=== PATIENT | male | born 1955 | race Caucasian/White ===

== ENCOUNTER 2016-09-22 08:46 | Day surgery (SDC) | payer BC ==
[~2016-09-22 08:46] MED LIST: Buffered Lidocaine 1% SYR 3ML* 3 ML/SYR SYRINGE INTRADERM ONE; Famotidine IV* 10 MG/ML 2 ML (20 mg) IV ONE
[2016-09-22] MEDS ORDERED: Famotidine IV* 10 MG/ML 2 ML (20 mg) ONE (08:53)
[2016-09-22] MEDS ORDERED: ceFAZolin 2 GM PREMIX (*) 2 GM/50 ML BAG IVPB ONE (08:53)
[2016-09-22] MEDS ORDERED: Midazolam* 1 MG/ML 5 ML VIAL (5 MG) ONE (09:16)
[2016-09-22] MEDS ORDERED: fentaNYL* 50 MCG/ML 2 ML VIAL (100 MCG VIAL) ONE (09:16)
[2016-09-22] MEDS ORDERED: Propofol* 10 MG/ML 20 ML BTL IV PUSH ONE (09:54)
[2016-09-22] MEDS ORDERED: Ondansetron INJ* 2 MG/ML VIAL ONE (09:54)
[2016-09-22] MEDS ORDERED: Lidocaine 2% PF * 5 ML VIAL ONE (09:54)
[2016-09-22] MEDS ORDERED: Acetaminophen TAB* 325 MG PO PRN (09:59)
[2016-09-22] MEDS ORDERED: DiMENhydriNATE IV* 50 MG/ML VIAL IV PUSH PRN (09:59)
[2016-09-22] MEDS ORDERED: oxyCODONE/Acetamin 5/325 MG* TAB PO PRN (09:59)
[2016-09-22] MEDS ORDERED: Bupivacaine 0.25% EPI 200,000* 30 ML SDV ONE (10:14)
[2016-09-22 11:21] VITALS: BP 116/69
== END 2016-09-22 11:39 | disposition home or self-care (01) ==
LOC: OREAST 08:46
PROVIDERS: ATTEND Plastic Surgery
DX: L98.8 Other specified disorders of the skin and subcutaneous tissue (principal); Z85.820 Personal history of malignant melanoma of skin; Z87.891 Personal history of nicotine dependence
CPT/HCPCS: 88305; J0690; J2250; J2405; J2704; J3010

== ENCOUNTER 2017-10-22 11:13 | Emergency (ER) | payer BC ==
--- OUTSIDE RECORDS SUMMARY | 2017-10-22 12:01 | XMS REPORT ---
:1955 External Reference #:[id number] Author Organization [facility] Address [address] [place] [address] Phone [phone] Care Team Providers Name Role Phone Rudi Becerra M.D. 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 [address] PayID: [id number] KT Judd [id number] Medigap Part B Effective: Policy Number: [employer] VARUN Cabrera 2013 [id number] Rosalie Group Name: [employer] [place] [address] [address] PayID: [id number] KT Judd [id number] Problems Date Description Provider Status Onset: 01/15/2012 Pure hypercholesterolemia Rudi Becerra M.D. Active Onset: 01/15/2012 Obstructive sleep apnea syndrome uRdi Becerra M.D. Active Onset: 01/15/2012 Overlapping malignant melanoma of skin Rudi Becerra M.D. Active Family History Date Family Member(s) Problem(s) Comments Father CAD had a stent in his 60's. : (age 72 Mother due to Cancer, Years) Lung Mother due to CAD () - had stents in her late 60's. 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 Cigarette Use Former Cigarette Smoker smoked 1/2 ppd x 6months in high school. Pipe Former Pipe Smoker, Smoked An Occasional Pipe ETOH Use Negative For Currently consumes alcohol Smoking Patient is a former smoker Exercise Type/Frequency Exercises rarely walks an hour a week. Allergies, Adverse Reactions, Alerts Date Description Reaction Status Severity Comments 11/28/2008 NKDA active Medications Medication Date Status Form Strength Qnty SIG Indications Ordering Provider Aspirin 09/29 Active Chewtabs 81mg 1 by mouth every day Jayesh Becerra Ranitidine HCL 10/14 Active Tablets 150mg 60tab take one tablet R12 s by mouth twice Becerra, a day if needed M.DFlor Pravastatin 08/17 Active Tablets 40mg 30tab take one tablet E78.0 s by mouth every Becerra, day M.DFlor Multivitamins 05/04 Active Tablets 1 po qd Jayesh Becerra Co Q-10 05/04 Active Capsules 200mg 1 po qd E78.0 Jayesh Becerra Glucosamine/Ch 04/07 Active Capsules Rudi ondroi Jayesh Becerra Zostavax 05/15 Hx Solution [id number] 1unit perishable V70.0 Rec 0.65ML s vaccine. bring Azam Becerra immediately to Jayesh 05/13 office administration unless administered at pharmacy Aspirin 12/05 Hx Tablets 325mg 1 po qd Azam Becerra M.D. 09/29 Protime 08/22 Hx standing order 443.21 for PT/inr Azam Becerra M.D. 08/27 V58.61 Warfarin Sodium 08/21/2012 - Hx Tablets 5mg 30tabs take one Lalitha An 12/04/2012 tablet by Devon, mouth every M.D. day in addition to 4mg dose Warfarin Sodium 08/21/2012 - Hx Tablets 4mg 30tabs take 1 tablet Lalitha An 12/04/2012 by mouth Devon, daily, in M.D. addition to one 5 mg tablet as directed. Warfarin Sodium 08/17/2012 - Hx Tablets 7.5mg Lalitha An 08/21/2012 Jayesh Osorio Omeprazole 08/17/2012 - Hx Capsules DR 20mg 90caps one po qam Lalitha An 11/27/2012 Jayesh Osorio Tamiflu 07/25/2012 - Hx Capsules 75mg 10caps take 1 Rudi Becerra, 08/24/2012 capsule by M.D. mouth 2 times per day for 5 days for flu Tizanidine HCL 06/11/2012 - Hx Capsules 4mg 20caps 1 po tid prn Pari 07/14/2016 back pain Aaron Turcios., R.D. Ginkgo Biloba 05/10/2012 - Hx Capsules 40mg Rudi Becerra, Extract 08/10/2012 Jayesh Candi Root 11/03/2011 - Hx Capsules uRdi Becerra, 05/07/2013 Jayesh Benzonatate 03/04/2011 - Hx Capsules 100mg 30caps 1 or 2 tabs 786 Farrah 05/03/2011 po tid prn .2 Vivi, coughing [employer] Unit 07/07/2009 - Hx 1Box reusable Rudi Becerra, 08/19/2015 electrodes M.D. Out Of Work 04/07/2009 - Hx Needs to be Rudi Becerra, 05/22/2009 out of work M.D. through 04/14/09 Aspirin 11/28/2008 - Hx Chewtabs 81mg 1 po qd 272 Rudi Becerra, 08/17/2012 .0 M.D. Fish Oil 11/28/2008 - Hx Capsules 1 po qd 272 Rudi Becerra, 05/03/2011 .0 M.D. Hearing Screen 11/28/2008 - Hx 389 Rudi Becerra, 12/28/2008 .8 M.D. Garlic 11/28/2008 - Hx Tablets Rudi Becerra, 05/03/2011 M.D. Pravastatin 11/28/2008 - Hx Tablets 40mg 135tabs Take One 272 Rudi Becerra, Sodium 05/10/2012 Tablets By .0 M.D. Mouth Every night Tizanidine HCL - Hx Tablets 2mg 30tabs 1 tid prn Unknown 05/03/2011 muscle spasm Tramadol - Hx Tablets Unknown Hydrochloride/A 05/03/2011 cetaminophen Codeine Sulfate - Hx Tablets 30mg Unknown 05/06/2013 Immunizations CPT Code Status Date Vaccine Lot # [id number] Given 04/26/2017 Influenza Virus Vaccine, Quadrivalent, 3 Yr > Quad, Preserv Free 57289 Given 09/29/2016 Hep B Vaccine Adult, 3 Dose age >20 yrs [id number] 81013 Given 09/29/2016 Zoster Vaccine [id number] 87843 Given 03/24/2016 Influenza Virus Vaccine, Quadrivalent, 3 Yr > Quad, Preserv Free 09818 Given 10/21/2015 Hep B Vaccine Adult, 3 Dose age >20 yrs [id number] 77266 Given 08/20/2015 Hep B Vaccine Adult, 3 Dose age >20 yrs [id number] 29568 Given 05/07/2015 Influenza Virus Vaccine, Quadrivalent, 3 Yr > Quad, Preserv Free 09548 Given 05/16/2014 Pneumovax 23 (PPSV23) 65+ years or high risk 2 to [id number] 65 year old 56063 Given 05/07/2014 Influenza Virus Vaccine, Quadrivalent, 3 Yr > Quad, Preserv Free 09933 Given 05/04/2011 Tdap (Adacel) [id number] 81999 Given 05/04/2011 Influenza Vaccine-Preservative Free 3 Yrs And [id number] Above 23241 Given 05/11/2005 DT (Adult) Vital Signs Date Vital Result Comment 09/27/2017 Weight 211.00 lb Weight in kg's 95.710 BP Systolic 134 mmHg BP Diastolic 78 mmHg Heart Rate 74 /min Body Temperature 97.3 F Respiratory Rate 16 /min Height 71.5 inches 5'11.50" BMI (Body Mass Index) 29.0 kg/m2 O2 % BldC Oximetry 98 % 09/29/2016 Weight 210.00 lb Weight in kg's 95.256 BP Systolic 140 mmHg BP Diastolic 70 mmHg Heart Rate 76 /min Height 70 inches 5'10" BMI (Body Mass Index) 30.1 kg/m2 07/14/2016 Weight 204.00 lb Weight in kg's 92.534 BP Systolic 122 mmHg BP Diastolic 78 mmHg Heart Rate 76 /min Body Temperature 97.1 F Respiratory Rate 16 /min O2 % BldC Oximetry 98 % 10/15/2015 Weight 207.00 lb Weight in kg's 93.895 BP Systolic 122 mmHg BP Diastolic 80 mmHg Heart Rate 60 /min 08/20/2015 Weight 206.00 lb Weight in kg's 93.442 BP Systolic 112 mmHg BP Diastolic 70 mmHg Heart Rate 60 /min Height 71 inches 5'11" BMI (Body Mass Index) 28.7 kg/m2 05/16/2014 Weight 201.00 lb Weight in kg's 91.174 BP Systolic 116 mmHg BP Diastolic 64 mmHg Heart Rate 68 /min Height 72 inches 6'0" BMI (Body Mass Index) 27.3 kg/m2 11/15/2013 Weight 201.00 lb Weight in kg's 91.174 BP Systolic 114 mmHg BP Diastolic 78 mmHg Heart Rate 60 /min 05/30/2013 Weight 204.00 lb Weight in kg's 92.534 BP Systolic 116 mmHg BP Diastolic 86 mmHg Heart Rate 62 /min Body Temperature 96.4 F 05/15/2013 Weight 198.00 lb Weight in kg's 89.813 BP Systolic 128 mmHg BP Diastolic 78 mmHg Heart Rate 78 /min Height 71.5 inches 5'11.50" BMI (Body Mass Index) 27.2 kg/m2 11/27/2012 Weight 199.00 lb Weight in kg's 90.266 BP Systolic 120 mmHg BP Diastolic 78 mmHg Heart Rate 68 /min 09/13/2012 Weight 202.00 lb Weight in kg's 91.627 BP Systolic 130 mmHg BP Diastolic 84 mmHg Heart Rate 76 /min 08/22/2012 Weight 198.00 lb Weight in kg's 89.813 BP Systolic 108 mmHg BP Diastolic 68 mmHg Heart Rate 64 /min 08/17/2012 Weight 197.00 lb Weight in kg's 89.359 BP Systolic 118 mmHg BP Diastolic 82 mmHg Heart Rate 68 /min Body Temperature 97.2 F 07/25/2012 Weight 196.00 lb Weight in kg's 88.906 BP Systolic 116 mmHg BP Diastolic 88 mmHg Heart Rate 108 /min Body Temperature 97.7 F 05/10/2012 Weight 204.00 lb Weight in kg's 92.534 BP Systolic 118 mmHg BP Diastolic 76 mmHg Heart Rate 80 /min Height 71 inches 5'11" BMI (Body Mass Index) 28.4 kg/m2 11/03/2011 Weight 219.00 lb Weight in kg's 99.338 BP Systolic 120 mmHg BP Diastolic 80 mmHg Heart Rate 64 /min 05/04/2011 Weight 218.00 lb Weight in kg's 98.885 BP Systolic 120 mmHg BP Diastolic 80 mmHg Heart Rate 82 /min 03/04/2011 Weight 219.00 lb Weight in kg's 99.338 BP Systolic 112 mmHg BP Diastolic 80 mmHg Heart Rate 85 /min Body Temperature 96.8 F O2 % BldC Oximetry 98 % 01/20/2011 Weight 217.00 lb Weight in kg's 98.431 BP Systolic 130 mmHg BP Diastolic 78 mmHg Heart Rate 80 /min Body Temperature 96.9 F 10/13/2010 Weight 215.00 lb Weight in kg's 97.524 BP Systolic 112 mmHg BP Diastolic 74 mmHg Heart Rate 72 /min 04/15/2010 Weight 211.00 lb Weight in kg's 95.710 BP Systolic 120 mmHg BP Diastolic 80 mmHg Heart Rate 84 /min Height 71 inches 5'11" BMI (Body Mass Index) 29.4 kg/m2 12/16/2009 Weight 212.00 lb Weight in kg's 96.163 BP Systolic 134 mmHg BP Diastolic 78 mmHg Heart Rate 80 /min 10/06/2009 Weight 214.00 lb Weight in kg's 97.070 BP Systolic 138 mmHg BP Diastolic 90 mmHg Heart Rate 72 /min 07/07/2009 Weight 218.00 lb Weight in kg's 98.885 BP Systolic 144 mmHg BP Diastolic 80 mmHg Heart Rate 76 /min 04/07/2009 Weight 215.00 lb Weight in kg's 97.524 BP Systolic 136 mmHg BP Diastolic 80 mmHg Heart Rate 72 /min 11/28/2008 Weight 210.00 lb Weight in kg's 95.256 BP Systolic 130 mmHg BP Diastolic 78 mmHg Heart Rate 72 /min Height 71 inches 5'11" BMI (Body Mass Index) 29.3 kg/m2 Results Test Date Test Result H/L Range Note Laboratory test finding 09/14/2017 Monospot Negative Negative 1, 2 Pathologist Review (SEE NOTE) 1, 3 CBC Auto Diff 09/14/2017 White Blood Count 7.9 10^3/uL 3.5-10.8 1 Red Blood Count 4.99 10^6/uL 4.0-5.4 1 Hemoglobin 16.0 g/dL 14.0-18.0 1 Hematocrit 47 % 42-52 1 Mean Corpuscular Volume 94 fL 80-94 1 Mean Corpuscular Hemoglobin 32 pg High 27-31 1 Mean Corpuscular HGB Conc 34 g/dL 31-36 1 Red Cell Distribution Width 13 % 10.5-15 1 Platelet Count 250 10^3/uL 150-450 1 Mean Platelet Volume 8 um3 7.4-10.4 1 Comp Metabolic Panel 09/14/2017 Sodium 137 mmol/L 133-145 1 Potassium 4.3 mmol/L 3.5-5.0 1 Chloride 101 mmol/L 101-111 1 Co2 Carbon Dioxide 30 mmol/L 22-32 1 Anion Gap 6 mmol/L 2-11 1 Glucose 96 mg/dL 70-100 1 Blood Urea Nitrogen 14 mg/dL 6-24 1 Creatinine 0.84 mg/dL 0.67-1.17 1 BUN/Creatinine Ratio 16.7 8-20 1 Calcium 9.8 mg/dL 8.6-10.3 1 Total Protein 7.3 g/dL 6.4-8.9 1 Albumin 4.8 g/dL 3.2-5.2 1 Globulin 2.5 g/dL 2-4 1 Albumin/Globulin Ratio 1.9 1-3 1 Total Bilirubin 1.10 mg/dL High 0.2-1.0 1 Alkaline Phosphatase 49 U/L 34-104 1 Alt 35 U/L 7-52 1 Ast 29 U/L 13-39 1 Egfr Non- 92.9 >60 1 Egfr 119.5 >60 1, 4 Lipid Profile (Trig/Chol/HDL) 09/14/2017 Triglycerides 125 mg/dL 1, 5 Cholesterol 234 mg/dL 1, 6 HDL Cholesterol 52.1 mg/dL 1, 7 LDL Cholesterol 157 mg/dL 1, 8 Manual Differential 09/14/2017 Neutrophil % 34 % Low 38-83 1 Lymphocytes % 40 % 25-47 1 Monocytes % 6 % 0-7 1 Eosinophils % 0 % 0-6 1 Basophil % 0 % 0-2 1 Reactive Lymph % 20 % High 0-6 1, 9 Abs Neutrophils 2.7 10^3/uL 1.5-7.7 1 Abs Lymphocytes 3.2 10^3/uL 1.0-4.8 1 Abs Monocytes 0.5 10^3/uL 0-0.8 1 Abs Eosinophils 0 10^3/uL 0-0.6 1 Abs Basophils 0 10^3/uL 0-0.2 1 RBC Morphology Normal Normal 1 Laboratory test finding 09/14/2017 PSA Screening 1.187 ng/mL 0-4.000 1, 10 CBC Auto Diff 10/03/2016 White Blood Count 5.9 10^3/uL 3.5-10.8 Red Blood Count 4.98 10^6/uL 4.0-5.4 Hemoglobin 15.8 g/dL 14.0-18.0 Hematocrit 46 % 42-52 Mean Corpuscular Volume 93 fL 80-94 Mean Corpuscular Hemoglobin 32 pg High 27-31 Mean Corpuscular HGB Conc 34 g/dL 31-36 Red Cell Distribution Width 13 % 10.5-15 Platelet Count 226 10^3/uL 150-450 Mean Platelet Volume 8 um3 7.4-10.4 Abs Neutrophils 2.4 10^3/uL 1.5-7.7 Abs Lymphocytes 2.7 10^3/uL 1.0-4.8 Abs Monocytes 0.7 10^3/uL 0-0.8 Abs Eosinophils 0.1 10^3/uL 0-0.6 Abs Basophils 0 10^3/uL 0-0.2 Abs Nucleated RBC 0.01 10^3/uL Granulocyte % 40.1 % 38-83 Lymphocyte % 46.4 % 25-47 Monocyte % 11.5 % High 1-9 Eosinophil % 1.5 % 0-6 Basophil % 0.5 % 0-2 Nucleated Red Blood Cells % 0.2 Comp Metabolic Panel 10/03/2016 Sodium 136 mmol/L 133-145 Potassium 4.4 mmol/L 3.5-5.0 Chloride 101 mmol/L 101-111 Co2 Carbon Dioxide 30 mmol/L 22-32 Anion Gap 5 mmol/L 2-11 Glucose 92 mg/dL 70-100 Blood Urea Nitrogen 14 mg/dL 6-24 Creatinine 0.77 mg/dL 0.67-1.17 BUN/Creatinine Ratio 18.2 8-20 Calcium 9.5 mg/dL 8.6-10.3 Total Protein 7.1 g/dL 6.4-8.9 Albumin 4.5 g/dL 3.2-5.2 Globulin 2.6 g/dL 2-4 Albumin/Globulin Ratio 1.7 1-3 Total Bilirubin 0.90 mg/dL 0.2-1.0 Alkaline Phosphatase 52 U/L 34-104 Alt 35 U/L 7-52 Ast 27 U/L 13-39 Egfr Non- 103.1 >60 Egfr 132.5 >60 11 Lipid Profile (Trig/Chol/HDL) 10/03/2016 Triglycerides 180 mg/dL 12 Cholesterol 251 mg/dL 13 HDL Cholesterol 50.4 mg/dL 14 LDL Cholesterol 165 mg/dL 15 Laboratory test finding 10/03/2016 PSA Screening 0.989 ng/mL 0-4.000 16 Urine DIP 09/29/2016 Leukocytes NEG Neg Urine Nitrites NEG Neg Urobilinogen NORM Norm Total Protein, Urine NEG Neg Urine pH 6 5-6 Urine Blood TRACE Neg Specific Bartlett 1.020 1.01-1.02 Urine Ketones NEG Neg Urine Bilirubin NEG Neg Urine Glucose NORM Norm Laboratory test 09/22/2016 Surgical Pathology SEE RESULT BELOW 17, 18 finding Laboratory test 08/24/2016 Surgical Pathology SEE RESULT BELOW 19, 20 finding Laboratory test 08/01/2016 Clotest SEE RESULT BELOW 21, 22 finding Laboratory test 07/01/2016 Inr 0.96 0.89-1.11 finding CBC Auto Diff 07/01/2016 White Blood Count 6.5 10^3/uL 3.5-10.8 Red Blood Count 5.02 10^6/uL 4.0-5.4 Hemoglobin 16.0 g/dL 14.0-18.0 Hematocrit 47 % 42-52 Mean Corpuscular Volume 93 fL 80-94 Mean Corpuscular Hemoglobin 32 pg High 27-31 Mean Corpuscular HGB Conc 34 g/dL 31-36 Red Cell Distribution Width 13 % 10.5-15 Platelet Count 265 10^3/uL 150-450 Mean Platelet Volume 8 um3 7.4-10.4 Abs Neutrophils 3.4 10^3/uL 1.5-7.7 Abs Lymphocytes 2.4 10^3/uL 1.0-4.8 Abs Monocytes 0.7 10^3/uL 0-0.8 Abs Eosinophils 0.1 10^3/uL 0-0.6 Abs Basophils 0 10^3/uL 0-0.2 Abs Nucleated RBC 0.01 10^3/uL Granulocyte % 51.6 % 38-83 Lymphocyte % 36.9 % 25-47 Monocyte % 10.2 % High 1-9 Eosinophil % 0.8 % 0-6 Basophil % 0.5 % 0-2 Nucleated Red Blood Cells % 0.2 Laboratory test finding 07/01/2016 C Reactive Protein < 1.00 mg/L &lt ; 5.00 23 Comp Metabolic Panel 07/01/2016 Sodium 138 mmol/L 133-145 Chloride 106 mmol/L 101-111 Co2 Carbon Dioxide 28 mmol/L 22-32 Glucose 101 mg/dL High 70-100 Blood Urea Nitrogen 18 mg/dL 6-24 Creatinine 0.77 mg/dL 0.67-1.17 BUN/Creatinine Ratio 23.4 High 8-20 Calcium 9.3 mg/dL 8.6-10.3 Total Protein 7.2 g/dL 6.4-8.9 Albumin 4.4 g/dL 3.2-5.2 Globulin 2.8 g/dL 2-4 Albumin/Globulin Ratio 1.6 1-3 Total Bilirubin 0.40 mg/dL 0.2-1.0 Alkaline Phosphatase 55 U/L 34-104 Alt 27 U/L 7-52 Egfr Non- 103.1 >60 Egfr 132.5 >60 24 Potassium 4.4 mmol/L 3.5-5.0 Anion Gap 4 mmol/L 2-11 Ast 27 U/L 13-39 Comp Metabolic Panel 04/10/2016 Sodium 137 mmol/L 133-145 Chloride 104 mmol/L 101-111 Co2 Carbon Dioxide 28 mmol/L 22-32 Glucose 120 mg/dL High 70-100 Blood Urea Nitrogen 19 mg/dL 6-24 Creatinine 0.86 mg/dL 0.67-1.17 BUN/Creatinine Ratio 22.1 High 8-20 Calcium 9.1 mg/dL 8.6-10.3 25 Total Protein 6.6 g/dL 6.4-8.9 Albumin 4.0 g/dL 3.2-5.2 Globulin 2.6 g/dL 2-4 Albumin/Globulin Ratio 1.5 1-3 Total Bilirubin 0.60 mg/dL 0.2-1.0 Alkaline Phosphatase 54 U/L 34-104 Alt 24 U/L 7-52 Egfr Non- 90.7 >60 Egfr 116.7 >60 26 Potassium 4.4 mmol/L 3.5-5.0 Anion Gap 5 mmol/L 2-11 Ast 28 U/L 13-39 Laboratory test finding 04/10/2016 Amylase 49 U/L 29-103 Lipase 28 U/L 11.0-82.0 C Reactive Protein < 1.00 mg/L < 5.00 27 Laboratory test finding 04/10/2016 B-Type Natriuretic 21 pg/mL 28 Peptide BNP CBC Auto Diff 04/10/2016 White Blood Count 7.2 10^3/uL 3.5-10.8 Red Blood Count 4.65 10^6/uL 4.0-5.4 Hemoglobin 15.2 g/dL 14.0-18.0 Hematocrit 44 % 42-52 Mean Corpuscular Volume 94 fL 80-94 Mean Corpuscular Hemoglobin 33 pg High 27-31 Mean Corpuscular HGB Conc 35 g/dL 31-36 Red Cell Distribution Width 13 % 10.5-15 Platelet Count 274 10^3/uL 150-450 Mean Platelet Volume 8 um3 7.4-10.4 Abs Neutrophils 3.7 10^3/uL 1.5-7.7 Abs Lymphocytes 2.7 10^3/uL 1.0-4.8 Abs Monocytes 0.7 10^3/uL 0-0.8 Abs Eosinophils 0 10^3/uL 0-0.6 Abs Basophils 0.1 10^3/uL 0-0.2 Abs Nucleated RBC 0.04 10^3/uL Granulocyte % 51.6 % 38-83 Lymphocyte % 37.3 % 25-47 Monocyte % 9.6 % High 1-9 Eosinophil % 0.6 % 0-6 Basophil % 0.9 % 0-2 Nucleated Red Blood Cells % 0.5 Urinalysis Profile 04/10/2016 Urine Color Yellow Urine Appearance Cloudy Urine Specific Bartlett 1.018 1.010-1.030 Urine pH 6.0 5-9 Urine Urobilinogen Negative Negative Urine Ketones Negative Negative Urine Protein Negative Negative Urine Leukocytes Negative Negative Urine Blood Negative Negative * * Negative 29 Urine Nitrite Negative Negative Urine Bilirubin Negative Negative Urine Glucose Negative Negative Laboratory test finding 09/30/2015 Troponin I 0.00 ng/mL <0.03 30 CBC Auto Diff 09/30/2015 White Blood Count 7.1 10^3/uL 3.5-10.8 Red Blood Count 4.79 10^6/uL 4.0-5.4 Hemoglobin 15.3 g/dL 14.0-18.0 Hematocrit 45 % 42-52 Mean Corpuscular Volume 94 fL 80-94 Mean Corpuscular Hemoglobin 32 pg High 27-31 Mean Corpuscular HGB Conc 34 g/dL 31-36 Red Cell Distribution Width 13 % 10.5-15 Platelet Count 269 10^3/uL 150-450 Mean Platelet Volume 7 um3 Low 7.4-10.4 Abs Neutrophils 3.8 10^3/uL 1.5-7.7 Abs Lymphocytes 2.4 10^3/uL 1.0-4.8 Abs Monocytes 0.8 10^3/uL 0-0.8 Abs Eosinophils 0 10^3/uL 0-0.6 Abs Basophils 0 10^3/uL 0-0.2 Abs Nucleated RBC 0.02 10^3/uL Granulocyte % 54.1 % 38-83 Lymphocyte % 33.9 % 25-47 Monocyte % 11.0 % High 1-9 Eosinophil % 0.3 % 0-6 Basophil % 0.7 % 0-2 Nucleated Red Blood Cells % 0.3 Inr/Protime 09/30/2015 Inr 1.02 0.89-1.11 Laboratory test finding 09/30/2015 Partial Thrombo Time 32.3 seconds 26.0 -36.3 PTT Lactic Acid 0.7 mmol/L 0.5-2.0 31 B-Type Natriuretic Peptide BNP 17 pg/mL 32 Urinalysis Profile 09/30/2015 Urine Color Yellow Urine Appearance Cloudy Urine Specific Bartlett 1.010 1.010-1.030 Urine pH 7.0 5-9 Urine Urobilinogen Negative Negative Urine Ketones Negative Negative Urine Protein Negative Negative Urine Leukocytes Negative Negative Urine Blood Negative Negative * * Negative 33 Urine Nitrite Negative Negative Urine Bilirubin Negative Negative Urine Glucose Negative Negative Comp Metabolic Panel 09/30/2015 Sodium 136 mmol/L 133-145 Potassium 3.8 mmol/L 3.5-5.0 Chloride 102 mmol/L 101-111 Co2 Carbon Dioxide 29 mmol/L 22-32 Anion Gap 5 mmol/L 2-11 Glucose 92 mg/dL 70-100 Blood Urea Nitrogen 16 mg/dL 6-24 Creatinine 0.80 mg/dL 0.67-1.17 BUN/Creatinine Ratio 20.0 8-20 Calcium 9.5 mg/dL 8.6-10.3 Total Protein 7.0 g/dL 6.4-8.9 Albumin 4.4 g/dL 3.2-5.2 Globulin 2.6 g/dL 2-4 Albumin/Globulin Ratio 1.7 1-3 Total Bilirubin 0.60 mg/dL 0.2-1.0 Alkaline Phosphatase 46 U/L 34-104 Alt 34 U/L 7-52 Ast 31 U/L 13-39 Egfr Non- 98.9 >60 Egfr 127.2 >60 34 Laboratory test finding 09/30/2015 Magnesium 2.2 mg/dL 1.9-2.7 Lipase 20 U/L 11.0-82.0 Creatine Kinase 205 U/L 10-223 C Reactive Protein < 1.00 mg/L < 5.00 35 Troponin I 0.00 ng/mL <0.03 36 CKMB 09/30/2015 CKMB ng/mL 4.0 ng/mL 0.6-6.3 Laboratory test finding 09/30/2015 TSH (Thyroid Stimulating 1.52 ?IU/mL 0.34-5.60 Horm) Urine DIP 08/20/2015 Leukocytes NEG Neg Urine Nitrites NEG Neg Urobilinogen NORM Norm Total Protein, Urine TRACE Neg Urine pH 6.5 High 5-6 Urine Blood TRACE Neg Specific Bartlett 1.010 1.01-1.02 Urine Ketones NEG Neg Urine Bilirubin NEG Neg Urine Glucose NORM Norm Statin 08/18/2015 Ast (Sgot) 27 U/L 13-39 Alt (SGPT) 28 U/L 7-52 Laboratory test finding 08/18/2015 Alt (SGPT) 28 U/L 7-52 Ast (Sgot) 27 U/L 13-39 Creatine Kinase 214 U/L 10-223 PSA Screening 1.225 ng/mL 0-4.0 37 Lipid Profile (Trig/Chol/HDL) 08/18/2015 Triglycerides 126 mg/dL 38 Cholesterol 192 mg/dL 39 HDL Cholesterol 54.0 mg/dL 40 LDL Cholesterol 113 mg/dL 41 Laboratory test finding 08/18/2015 Creatine Kinase 214 U/L 10-223 Lipid Profile (Trig/Chol/HDL) 08/18/2015 Triglycerides 126 mg/dL 42 Cholesterol 192 mg/dL 43 HDL Cholesterol 54.0 mg/dL 44 LDL Cholesterol 113 mg/dL 45 Laboratory test 01/30/2015 Surgical Pathology SEE RESULT BELOW 46 finding Urine DIP 05/16/2014 Specific Bartlett 1.005 Low 1.01-1.02 Urine pH 8 High 5-6 Leukocytes neg Neg Urine Nitrites neg Neg Total Protein, Urine neg Neg Urine Glucose norm Norm Urine Ketones neg Neg Urobilinogen norm Norm Urine Bilirubin neg Neg Urine Blood neg Neg Laboratory test finding 05/15/2014 PSA Diagnostic 0.908 ng/mL 0-4.0 47 CBC Auto Diff 05/15/2014 White Blood Count 4.6 10^3/uL Low 4.8-10.8 Red Blood Count 4.86 10^6/uL 4.0-5.4 Hemoglobin 15.7 g/dL 14.0-18.0 Hematocrit 46 % 42-52 Mean Corpuscular Volume 95 fL High 80-94 Mean Corpuscular Hemoglobin 32 pg High 27-31 Mean Corpuscular HGB Conc 34 g/dL 31-36 Red Cell Distribution Width 13 % 10.5-15 Platelet Count 261 10^3/uL 150-450 Mean Platelet Volume 7 um3 Low 7.4-10.4 Abs Neutrophils 2.3 10^3/uL 1.5-7.7 Abs Lymphocytes 1.7 10^3/uL 1.0-4.8 Abs Monocytes 0.5 10^3/uL 0-0.8 Abs Eosinophils 0 10^3/uL 0-0.6 Abs Basophils 0 10^3/uL 0-0.2 Abs Nucleated RBC 0.01 10^3/uL Granulocyte % 49.5 % 38-83 Lymphocyte % 37.9 % 25-47 Monocyte % 11.4 % High 1-9 Eosinophil % 0.7 % 0-6 Basophil % 0.5 % 0-2 Nucleated Red Blood Cells % 0.1 Laboratory test finding 05/15/2014 Creatine Kinase 166 U/L 10223 Lipid Profile (Trig/Chol/HDL) 05/15/2014 Triglycerides 73 mg/dL 48 Cholesterol 178 mg/dL 49 HDL Cholesterol 54.2 mg/dL 50 LDL Cholesterol 109 mg/dL 51 Comp Metabolic Panel 05/15/2014 Sodium 136 mmol/L 133-145 Potassium 4.0 mmol/L 3.7-5.6 Chloride 100 mmol/L Low 101-111 Co2 Carbon Dioxide 32 mmol/L 22-32 Anion Gap 4 mmol/L 2-11 Glucose 96 mg/dL 70-100 Blood Urea Nitrogen 11 mg/dL 6-24 Creatinine 0.83 mg/dL 0.67-1.17 BUN/Creatinine Ratio 13.3 8-20 Calcium 9.7 mg/dL 8.6-10.3 Total Protein 7.3 g/dL 6.4-8.9 Albumin 4.6 g/dL 3.2-5.2 Globulin 2.7 g/dL 2-4 Albumin/Globulin Ratio 1.7 1-3 Total Bilirubin 0.90 mg/dL 0.2-1.0 Alkaline Phosphatase 49 U/L 34-104 Alt 23 U/L 7-52 Ast 24 U/L 13-39 Egfr Non- 95.2 >60 Egfr 122.4 >60 52 Statin 11/12/2013 Ast 26 U/L 13-39 53 Alt 26 U/L 7-52 54 Lipid Profile (Trig/Chol/HDL) 11/12/2013 Triglycerides 114 mg/dL 55 Cholesterol 181 mg/dL 56 HDL Cholesterol 52.1 mg/dL 57 LDL Cholesterol 106 mg/dL 58 Basic Metabolic Panel 11/12/2013 Sodium 135 mmol/L 133-145 Potassium 4.2 mmol/L 3.7-5.6 Chloride 101 mmol/L 101-111 Co2 Carbon Dioxide 32 mmol/L 22-32 Anion Gap 2 mmol/L 2-11 Glucose 99 mg/dL 70-100 Blood Urea Nitrogen 11 mg/dL 6-24 Creatinine 0.77 mg/dL 0.67-1.17 BUN/Creatinine Ratio 14.3 8-20 Calcium 9.5 mg/dL 8.6-10.3 Egfr Non- 104.1 >60 Egfr 133.9 >60 59 Laboratory test finding 11/12/2013 Creatine Kinase 161 U/L 10-223 60 Laboratory test finding 11/12/2013 PSA Screening 0.870 ng/mL 0-4.0 61 CBC Auto Diff 05/13/2013 White Blood Count 5.2 10^3/uL 4.8-10.8 Red Blood Count 4.69 10^6/uL 4.0-5.4 Hemoglobin 14.9 g/dL 14.0-18.0 Hematocrit 46 % 42-52 Mean Corpuscular Volume 98 fL High 80-94 Mean Corpuscular Hemoglobin 32 pg High 27-31 Mean Corpuscular HGB Conc 33 g/dL 31-36 Red Cell Distribution Width 13 % 10.5-15 Platelet Count 252 10^3/uL 150-450 Mean Platelet Volume 8 um3 7.4-10.4 Comp Metabolic Panel 05/13/2013 Sodium 137 mmol/L 133-145 Potassium 4.4 mmol/L 3.5-5.0 Chloride 103 mmol/L 101-111 Co2 Carbon Dioxide 31.0 mmol/L 22-32 Anion Gap 3.0 mmol/L 2-11 Glucose 105 mg/dL High 70-100 Blood Urea Nitrogen 8 mg/dL 6-24 Creatinine 0.70 mg/dL 0.50-1.40 BUN/Creatinine Ratio 11.4 8-20 Calcium 9.4 mg/dL 8.1-9.9 Total Protein 6.5 g/dL 6.2-8.1 Albumin 4.2 g/dL 3.6-5.4 Globulin 2.3 g/dL 2-4 Albumin/Globulin Ratio 1.8 1-3 Total Bilirubin 1.1 mg/dL 0.4-1.5 Alkaline Phosphatase 51 U/L 30-110 Alt 31 U/L 14-54 Ast 32 U/L 12-42 Egfr Non- 116.2 >60 Egfr 149.5 >60 62 Lipid Profile (Trig/Chol/HDL) 05/13/2013 Triglycerides 121 mg/dL 40-200 Cholesterol 189 mg/dL Less than 200 HDL Cholesterol 51 mg/dL 40-60 63 Cholesterol/HDL Ratio 3.7 Average 1-4.44 LDL Cholesterol 113.8 High Less Than 100 64 Laboratory test finding 05/13/2013 PSA Screening 1.001 ng/mL 0-4.000 65 Creatine Kinase 246 U/L High 0-200 CBC Auto Diff 05/13/2013 White Blood Count 5.2 10^3/uL 4.8-10.8 Red Blood Count 4.69 10^6/uL 4.0-5.4 Hemoglobin 14.9 g/dL 14.0-18.0 Hematocrit 46 % 42-52 Mean Corpuscular Volume 98 fL High 80-94 Mean Corpuscular Hemoglobin 32 pg High 27-31 Mean Corpuscular HGB Conc 33 g/dL 31-36 Red Cell Distribution Width 13 % 10.5-15 Platelet Count 252 10^3/uL 150-450 Mean Platelet Volume 8 um3 7.4-10.4 Abs Neutrophils 3.2 10^3/uL 1.5-7.7 Abs Lymphocytes 1.5 10^3/uL 1.0-4.8 Abs Monocytes 0.6 10^3/uL 0-0.8 Abs Eosinophils 0 10^3/uL 0-0.6 Abs Basophils 0 10^3/uL 0-0.2 Abs Nucleated RBC 0 10^3/uL Granulocyte % 60.8 % 38-83 Lymphocyte % 27.7 % 25-47 Monocyte % 10.6 % High 1-9 Eosinophil % 0.3 % 0-6 Basophil % 0.6 % 0-2 Nucleated Red Blood Cells % 0.1 Inr/Protime 11/30/2012 Inr 1.31 High 0.87-0.97 Statin 11/26/2012 Ast 38 U/L 12-42 66 Alt 42 U/L 14-54 67 Lipid Profile (Trig/Chol/HDL) 11/26/2012 Triglycerides 139 mg/dL 40-200 Cholesterol 210 mg/dL High Less than 200 HDL Cholesterol 46 mg/dL 40-60 68 Cholesterol/HDL Ratio 4.6 Average High 1-4.44 LDL Cholesterol 136.2 mg/dL High Less Than 100 69 Basic Metabolic Panel 11/26/2012 Sodium 137 mmol/L 133-145 Potassium 4.8 mmol/L 3.5-5.0 Chloride 102 mmol/L 101-111 Co2 Carbon Dioxide 31.0 mmol/L 22-32 Anion Gap 4.0 mmol/L 2-11 Glucose 104 mg/dL High 70-100 Blood Urea Nitrogen 14 mg/dL 6-24 Creatinine 0.70 mg/dL 0.50-1.40 BUN/Creatinine Ratio 20.0 8-20 Calcium 9.5 mg/dL 8.1-9.9 Egfr Non- 116.7 >60 Egfr 150.0 >60 70 Laboratory test finding 11/26/2012 Creatine Kinase 248 U/L High 0-200 71 Inr/Protime 11/26/2012 Inr 5.80 High 0.87-0.97 Laboratory test finding 11/08/2012 Inr 1.33 High 0.87-0.97 Hepatitis B Yfn AB 11/08/2012 Hepatitis B Surface Reactive Nonreactive Titer AB Hep B Surf AB Index > 100.00 72 Laboratory test finding 10/30/2012 Inr 1.40 High 0.87-0.97 Laboratory test finding 10/16/2012 Inr 1.89 High 0.87-0.97 73 Inr/Protime 10/04/2012 Inr 1.61 High 0.87-0.97 74 Inr/Protime 09/14/2012 Inr 2.31 High 0.87-0.97 75 Inr/Protime 09/07/2012 Inr 3.59 High 0.87-0.97 76 Inr/Protime 08/31/2012 Inr 2.78 High 0.87-0.97 77 Laboratory test finding 08/27/2012 Inr 2.66 High 0.87-0.97 78 Inr/Protime 08/24/2012 Inr 1.62 High 0.87-0.97 79 Inr/Protime 08/20/2012 Inr 1.85 High 0.82-1.17 80 Laboratory test finding 08/17/2012 Inr 1.73 High 0.82-1.17 81 Comp Metabolic Panel 08/10/2012 Sodium 133 mmol/L 133-145 Potassium 4.3 mmol/L 3.5-5.0 Chloride 99 mmol/L Low 101-111 Co2 Carbon Dioxide 30.0 mmol/L 22-32 Anion Gap 4.0 mmol/L 2-11 Glucose 103 mg/dL High 70-100 Blood Urea Nitrogen 10 mg/dL 6-24 Creatinine 0.90 mg/dL 0.50-1.40 BUN/Creatinine Ratio 11.1 8-20 Calcium 9.4 mg/dL 8.1-9.9 Total Protein 6.7 g/dL 6.2-8.1 Albumin 4.4 g/dL 3.6-5.4 Globulin 2.3 g/dL 2-4 Albumin/Globulin Ratio 1.9 1-3 Total Bilirubin 1.0 mg/dL 0.4-1.5 Alkaline Phosphatase 58 U/L 30-110 Alt 25 U/L 14-54 Ast 22 U/L 12-42 Egfr Non- 87.3 >60 Egfr 112.3 >60 82 Laboratory test finding 08/10/2012 Magnesium 2.0 mg/dL 1.7-2.6 Troponin I 0 ng/mL 0-0.06 83 TSH (Thyroid Stimulating Horm) 2.24 miu/mL 0.34-5.60 Laboratory test finding 08/10/2012 Inr 0.92 0.82-1.17 84 Activated Partial Thrombo Time 31.6 sec 22.18-37.18 CBC Auto Diff 08/10/2012 White Blood Count 5.5 10^3/uL 4.8-10.8 Red Blood Count 4.76 10^6/uL 4.0-5.4 Hemoglobin 15.7 g/dL 14.0-18.0 Hematocrit 46 % 42-52 Mean Corpuscular Volume 96 fL High 80-94 Mean Corpuscular Hemoglobin 33 pg High 27-31 Mean Corpuscular HGB Conc 34 g/dL 31-36 Red Cell Distribution Width 13 % 10.5-15 Platelet Count 324 10^3/uL 150-450 Mean Platelet Volume 8 um3 7.4-10.4 Abs Neutrophils 2.2 10^3/uL 1.5-7.7 Abs Lymphocytes 2.5 10^3/uL 1.0-4.8 Abs Monocytes 0.8 10^3/uL 0-0.8 Abs Eosinophils 0.1 10^3/uL 0-0.6 Abs Basophils 0 10^3/uL 0-0.2 Abs Nucleated RBC 0 10^3/uL Manual Differential 08/10/2012 Neutrophil % 30 % Low 38-83 Band % 5 % 0-8 Lymphocytes % 48 % High 25-47 Monocytes % 6 % 0-13 Eosinophils % 2 % 0-6 Reactive Lymph % 9 % High 0-6 RBC Morphology Normal Normal Laboratory test finding 08/10/2012 Pathologist Review (SEE NOTE) 85 Flu Test A, B, Or A & B,Binaxn 07/25/2012 Influenza A Antigen POS Influenza B Antigen NEG Laboratory test finding 05/04/2012 Creatine Kinase 165 U/L 0-200 CBC Auto Diff 05/04/2012 White Blood Count 4.1 10^3/uL Low 4.8-10.8 Red Blood Count 4.60 10^6/uL 4.0-5.4 Hemoglobin 15.3 g/dL 14.0-18.0 Hematocrit 45 % 42-52 Mean Corpuscular Volume 98 fL High 80-94 Mean Corpuscular Hemoglobin 33 pg High 27-31 Mean Corpuscular HGB Conc 34 g/dL 31-36 Red Cell Distribution Width 13 % 10.5-15 Platelet Count 236 10^3/uL 150-450 Mean Platelet Volume 8 um3 7.4-10.4 Abs Neutrophils 2.1 10^3/uL 1.5-7.7 Abs Lymphocytes 1.4 10^3/uL 1.0-4.8 Abs Monocytes 0.6 10^3/uL 0-0.8 Abs Eosinophils 0 10^3/uL 0-0.6 Abs Basophils 0 10^3/uL 0-0.2 Abs Nucleated RBC 0 10^3/uL Granulocyte % 50.1 % 38-83 Lymphocyte % 34.3 % 25-47 Monocyte % 14.3 % High 1-9 Eosinophil % 0.7 % 0-6 Basophil % 0.6 % 0-2 Nucleated Red Blood Cells % 0.1 Laboratory test finding 05/04/2012 PSA Screening 0.8 NG/ML 0-4.0 86 Lipid Profile (Trig/Chol/HDL) 05/04/2012 Triglycerides 117 mg/dL 40-200 Cholesterol 192 mg/dL Less than 200 87 HDL Cholesterol 52 mg/dL 40-60 88 Cholesterol/HDL Ratio 3.7 AVERAGE 1-4.44 LDL Cholesterol 116.6 mg/dL High Less Than 100 Comp Metabolic Panel 05/04/2012 Sodium 136 mmol/L 133-145 Potassium 4.6 mmol/L 3.5-5.0 Chloride 100 mmol/L Low 101-111 Co2 Carbon Dioxide 32.0 mmol/L 22-32 Anion Gap 4.0 mmol/L 2-11 Glucose 101 mg/dL High 70-100 Blood Urea Nitrogen 9 mg/dL 6-24 Creatinine 0.80 mg/dL 0.50-1.40 BUN/Creatinine Ratio 11.3 8-20 Calcium 9.4 mg/dL 8.1-9.9 Total Protein 6.6 GM/DL 6.2-8.1 Albumin 4.3 GM/DL 3.6-5.4 Globulin 2.3 GM/DL 2-4 Albumin/Globulin Ratio 1.9 1-3 Total Bilirubin 1.2 mg/dL High 0.1-1.0 89 Alkaline Phosphatase 54 U/L 30-110 Alt 30 U/L 14-54 Ast 27 U/L 12-42 Egfr Non- 100.0 >60 Egfr 128.6 >60 90 Lipid Profile (Trig/Chol/HDL) 11/01/2011 Triglyceride 82 mg/dL 40-200 91 Cholesterol 194 mg/dL Less Than 200 91, 92 High Density Lipoprotein 45 mg/dL 40-60 91, 93 Cholesterol/HDL Ratio 4.31 AVERAGE 1-4.97 91 Low Density Lipoprotein 133 mg/dL High Less Than 100 91, 94 Laboratory test finding 11/01/2011 CPK (Creatine Kinase) 290 U/L High 0- 200 91 Statin 11/01/2011 Ast (Sgot) 35 U/L 12-42 91 Alt (SGPT) 39 U/L 17-63 91 Urine DIP 05/04/2011 Leukocytes NEG Neg Urine Nitrites NEG Neg Urine pH 8 High 5-6 Total Protein, Urine NEG Neg Urine Glucose NORM Norm Urine Ketones NEG Neg Urobilinogen NORM Norm Urine Bilirubin NEG Neg Urine Blood NEG Neg Specific Bartlett N/A Low 1.01-1.02 CBC Auto Diff 04/27/2011 White Blood Count 4.2 CUMM Low 4.8-10.8 Red Cell Count 4.54 CUMM Low 4.6-6.2 Hemoglobin 14.8 g/dL 14.0-18.0 Hematocrit 43 % 42-52 Mean Corpuscular Volume 95 um3 High 80-94 Mean Corpuscular Hemoglob 33 pg High 27-31 Mean Corpuscular HGB Cone 34 g/dL 32-36 Redcell Distribution WDTH 13 % 10.5-15 Platelet Count 272 CUMM 150-450 Mean Platelet Volume 7.7 um3 7.4-10.4 Gran % 43.3 % 38-83 Lymph % 40.6 % 25-47 Mononuclear % 13.7 % High 1-9 Eosinophil % 2.0 % 0-6 Basophil % 0.4 % 0-2 Abs Lymphs 1.7 1.0-4.8 Abs Mononuclear 0.6 0-0.8 Absolute Neutrophil Count 1.8 1.5-7.7 Abs Eosinophils 0.1 0-0.6 Abs Basophils 0 0-0.2 Comp Metabolic Panel 04/27/2011 Sodium 137 mmol/L 135-145 Potassium 4.7 mmol/L 3.5-5.0 Chloride 99 mmol/L Low 101-111 Co2 (Carbon Dioxide) 30.0 mmol/L 22-32 Anion Gap 8.0 mmol/L 2-11 95 Glucose 89 mg/dL 70-100 BUN 15 mg/dL 6-24 Creatinine 0.9 mg/dL 0.50-1.40 One Over Creatinine 1.11 BUN/Creatinine Ratio 16.7 8-20 Calcium 9.3 mg/dL 8.1-9.9 Total Protein 7.2 GM/DL 6.2-8.1 Albumin 4.3 GM/DL 3.6-5.4 Globulin 2.9 GM/DL 2-4 Albumin/Globulin Ratio 1.5 1-3 Bilirubin Total 1.2 mg/dL 0.4-1.5 96 Alkaline Phosphatase 62 U/L 39-117 Alt (SGPT) 46 U/L 17-63 Ast (Sgot) 48 U/L High 12-42 eGFR Non- 87.6 > 60 eGFR 112.7 > 60 97 Lipid Profile (Trig/Chol/HDL) 04/27/2011 Triglyceride 102 mg/dL 40-200 Cholesterol 187 mg/dL Less Than 200 98 High Density Lipoprotein 40 mg/dL 40-60 99 Cholesterol/HDL Ratio 4.68 AVERAGE 1-4.97 Low Density Lipoprotein 127 mg/dL High Less Than 100 100 Laboratory test finding 04/27/2011 CPK (Creatine Kinase) 673 U/L High 0- 200 PSA Screening 0.64 NG/ML 0-4 Statin 01/12/2011 Ast (Sgot) 37 U/L 12-42 Alt (SGPT) 40 U/L 17-63 Lipid Profile (Trig/Chol/HDL) 01/12/2011 Triglyceride 119 mg/dL 40-200 Cholesterol 225 mg/dL High Less Than 200 101 High Density Lipoprotein 50 mg/dL 40-60 102 Cholesterol/HDL Ratio 4.50 AVERAGE 1-4.97 Low Density Lipoprotein 151 mg/dL High Less Than 100 103 Laboratory test finding 01/12/2011 CPK (Creatine Kinase) 313 U/L High 0- 200 Laboratory test finding 11/11/2010 Iron Total 52 g/dL 45-182 Ferritin 119 NG/ML 24-336 Vitamin B12 408 pg/mL 180-914 Folic Acid > 20.0 NG/ML High 2-16 TSH 1.85 MIU/ML 0.34-5.60 Testosterone Total 278.6 ng/dL 175-781 Statin 10/06/2010 Ast (Sgot) 36 Alt (SGPT) 50 Lipid Profile (Trig/Chol/HDL) 10/06/2010 Triglyceride 267 High Cholesterol 260 High 104 High Density Lipoprotein 50 105 Cholesterol/HDL Ratio 5.20 High Low Density Lipoprotein 157 High 106 Laboratory test finding 10/06/2010 CPK (Creatine Kinase) 95 CBC With Electronic Diff 05/23/2010 White Blood Count 5.7 CUMM 4.8-10.8 Red Cell Count 4.26 CUMM Low 4.6-6.2 Hemoglobin 14.1 g/dL 14.0-18.0 Hematocrit 41 % Low 42-52 Mean Corpuscular Volume 97 um3 High 80-94 Mean Corpuscular Hemoglob 33 pg High 27-31 Mean Corpuscular HGB Cone 34 g/dL 32-36 Redcell Distribution WDTH 13 % 10.5-15 Platelet Count 273 CUMM 150-450 Mean Platelet Volume 6.3 um3 Low 7.4-10.4 Gran % 44.4 % 38-83 Lymph % 40.2 % 25-47 Mononuclear % 13.1 % High 1-9 Eosinophil % 1.8 % 0-6 Basophil % 0.5 % 0-2 Abs Lymphs 2.3 1.0-4.8 Abs Mononuclear 0.8 0-0.8 Absolute Neutrophil Count 2.5 1.5-7.7 Abs Eosinophils 0.1 0-0.6 Abs Basophils 0 0-0.2 PT W/Inr 05/23/2010 Inr 1.03 0.82-1.17 107 Protime 12.2 SEC 10.2-14.8 108 Comp Metabolic Panel 05/23/2010 Sodium 138 mmol/L 135-145 Potassium 4.1 mmol/L 3.5-5.0 Chloride 102 mmol/L 101-111 Co2 (Carbon Dioxide) 29.0 mmol/L 22-32 Anion Gap 7.0 mmol/L 2-11 109 Glucose 101 mg/dL High 70-100 110 BUN 12 mg/dL 6-24 Creatinine 0.90 mg/dL 0.50-1.40 One Over Creatinine 1.10 BUN/Creatinine Ratio 13.3 8-20 Calcium 8.8 mg/dL 8.1-9.9 Total Protein 6.4 GM/DL 6.2-8.1 Albumin 4.2 GM/DL 3.6-5.4 Globulin 2.2 GM/DL 2-4 Albumin/Globulin Ratio 1.9 1-3 Bilirubin Total 0.7 mg/dL 0.4-1.5 111 Alkaline Phosphatase 67 U/L 39-117 Alt (SGPT) 42 U/L 17-63 Ast (Sgot) 29 U/L 12-42 eGFR Non- 93.5 > 60 eGFR 113.1 > 60 112 Laboratory test finding 05/23/2010 Magnesium 2.3 mg/dL 1.7-2.6 CPK (Creatine Kinase) 244 U/L High 0-200 Troponin-I (TnI) 0 NG/ML 113 Urine DIP 04/15/2010 Leukocytes NEG Neg Urine Nitrites NEG Neg Urine pH 7 High 5-6 Total Protein, Urine NEG Neg Urine Glucose NORM Norm Urine Ketones NEG Neg Urobilinogen NORM Norm Urine Bilirubin NEG Neg Urine Blood NEG Neg Specific Bartlett NA Low 1.01-1.02 CBC With Electronic Diff 03/01/2010 White Blood Count 5.3 CUMM 4.8-10.8 Red Cell Count 4.73 CUMM 4.6-6.2 Hemoglobin 15.6 g/dL 14.0-18.0 Hematocrit 46 % 42-52 Mean Corpuscular Volume 96 um3 High 80-94 Mean Corpuscular Hemoglob 33 pg High 27-31 Mean Corpuscular HGB Cone 34 g/dL 32-36 Redcell Distribution WDTH 13 % 10.5-15 Platelet Count 277 CUMM 150-450 Mean Platelet Volume 6.7 um3 Low 7.4-10.4 Gran % 48.7 % 38-83 Lymph % 37.3 % 25-47 Mononuclear % 11.9 % High 1-9 Eosinophil % 1.5 % 0-6 Basophil % 0.6 % 0-2 Abs Lymphs 2.0 1.0-4.8 Abs Mononuclear 0.6 0-0.8 Absolute Neutrophil Count 2.6 1.5-7.7 Abs Eosinophils 0.1 0-0.6 Abs Basophils 0 0-0.2 Comp Metabolic Panel 03/01/2010 Sodium 138 mmol/L 135-145 Potassium 4.3 mmol/L 3.5-5.0 Chloride 104 mmol/L 101-111 Co2 (Carbon Dioxide) 30.0 mmol/L 22-32 Anion Gap 4.0 mmol/L 2-11 114 Glucose 95 mg/dL 70-100 115 BUN 13 mg/dL 6-24 Creatinine 0.80 mg/dL 0.50-1.40 One Over Creatinine 1.20 BUN/Creatinine Ratio 16.3 8-20 Calcium 9.3 mg/dL 8.1-9.9 116 Total Protein 6.8 GM/DL 6.2-8.1 Albumin 4.5 GM/DL 3.6-5.4 Globulin 2.3 GM/DL 2-4 Albumin/Globulin Ratio 2.0 1-3 Bilirubin Total 0.8 mg/dL 0.4-1.5 117 Alkaline Phosphatase 55 U/L 39-117 Alt (SGPT) 39 U/L 17-63 Ast (Sgot) 30 U/L 12-42 eGFR Non- 107.1 > 60 eGFR 129.6 > 60 118 Lipid Profile (Trig/Chol/HDL) 03/01/2010 Triglyceride 164 mg/dL 40-200 Cholesterol 231 mg/dL High Less Than 200 119 High Density Lipoprotein 41 mg/dL 40-60 120 Cholesterol/HDL Ratio 5.63 AVERAGE High 1-4.97 Low Density Lipoprotein 157 mg/dL High Less Than 100 121 Laboratory test finding 03/01/2010 CPK (Creatine Kinase) 162 U/L 0-200 PSA Screening 0.58 NG/ML 0-4 122 Statin 11/02/2009 Ast (Sgot) 32 U/L 12-42 Alt (SGPT) 38 U/L 17-63 Lipid Profile (Trig/Chol/HDL) 11/02/2009 Triglyceride 135 mg/dL 40-200 Cholesterol 191 mg/dL Less Than 200 123 High Density Lipoprotein 36 mg/dL Low 40-60 124 Cholesterol/HDL Ratio 5.31 AVERAGE High 1-4.97 Low Density Lipoprotein 128 mg/dL High Less Than 100 125 Laboratory test finding 11/02/2009 CPK (Creatine Kinase) 190 U/L 0-200 Statin 07/13/2009 Ast (Sgot) 31 U/L 12-42 91 Alt (SGPT) 33 U/L 17-63 91 Laboratory test finding 07/13/2009 CPK (Creatine Kinase) 287 U/L High 0- 200 91 Lipid Profile 07/13/2009 Triglyceride 149 mg/dL 40-200 91 (Trig/Chol/HDL) Cholesterol 208 mg/dL High Less Than 200 91, 126 High Density Lipoprotein 41 mg/dL 40-60 91, 127 Cholesterol/HDL Ratio 5.07 AVERAGE High 1-4.97 91 Low Density Lipoprotein 137 mg/dL High Less Than 100 91, 128 Laboratory test finding 03/26/2009 CPK (Creatine Kinase) 322 U/L High 0- 200 TSH 1.96 MIU/ML 0.34-5.60 Lipid Profile (Trig/Chol/HDL) 03/26/2009 Triglyceride 279 mg/dL High 40- 200 Cholesterol 232 mg/dL High Less Than 200 129 High Density Lipoprotein 36 mg/dL Low 40-60 130 Cholesterol/HDL Ratio 6.44 AVERAGE High 1-4.97 Low Density Lipoprotein 140 mg/dL High Less Than 100 131 Statin 03/26/2009 Ast (Sgot) 55 U/L High 12-42 Alt (SGPT) 114 U/L High 17-63 Urine DIP 11/28/2008 Leukocytes NEG Neg Urine Nitrites NEG Neg Urine pH 7 High 5-6 Total Protein, Urine NEG Neg Urine Glucose NORM Norm Urine Ketones NEG Neg Urobilinogen NORM Norm Urine Bilirubin NEG Neg Urine Blood NEG Neg Specific [place]lett NORM Low 1.01-1.02 Laboratory test finding 11/28/2008 PSA Screening 0.63 NG/ML 0-4 Lipid Profile (Trig/Chol/HDL) 11/28/2008 Triglyceride 116 mg/dL 40-200 Cholesterol 263 mg/dL High Less Than 200 132 High Density Lipoprotein 45 mg/dL 40-60 133 Cholesterol/HDL Ratio 5.84 AVERAGE High 1-4.97 Low Density Lipoprotein 195 mg/dL High Less Than 100 134 Comp Metabolic Panel 11/28/2008 Sodium 137 mmol/L 135-145 Potassium 4.5 mmol/L 3.5-5.0 Chloride 102 mmol/L 101-111 Co2 (Carbon Dioxide) 31.0 mmol/L 22-32 Anion Gap 4.0 mmol/L 2-11 135 Glucose 97 mg/dL 70-100 136 BUN 15 mg/dL 6-24 Creatinine 0.81 mg/dL 0.50-1.40 One Over Creatinine 1.20 BUN/Creatinine Ratio 18.5 8-20 Calcium 9.4 mg/dL 8.1-9.9 137 Total Protein 7.0 GM/DL 6.2-8.1 Albumin 4.7 GM/DL 3.6-5.4 Globulin 2.3 GM/DL 2-4 Albumin/Globulin Ratio 2.0 1-3 Bilirubin Total 1.1 mg/dL 0.4-1.5 Alkaline Phosphatase 55 U/L 39-117 Alt (SGPT) 35 U/L 17-63 Ast (Sgot) 28 U/L 12-42 CBC With Electronic Diff 11/28/2008 White Blood Count 4.7 CUMM Low 4.8- 10.8 Red Cell Count 4.75 CUMM 4.6-6.2 Hemoglobin 15.4 g/dL 14.0-18.0 Hematocrit 45 % 42-52 Mean Corpuscular Volume 94 um3 80-94 Mean Corpuscular Hemoglob 32 pg High 27-31 Mean Corpuscular HGB Cone 34 g/dL 32-36 Redcell Distribution WDTH 13 % 10.5-15 Platelet Count 288 CUMM 150-450 Mean Platelet Volume 7.5 um3 7.4-10.4 Gran % 50.3 % 38-83 Lymph % 37.9 % 25-47 Mononuclear % 11.0 % High 1-9 Eosinophil % 0.4 % 0-6 Basophil % 0.4 % 0-2 Abs Lymphs 1.8 1.0-4.8 Abs Mononuclear 0.5 0-0.8 Absolute Neutrophil Count 2.4 1.5-7.7 Abs Eosinophils 0 0-0.6 Abs Basophils 0 0-0.2 1 Variant LY 2 Variant LY 3 Reactive lymphocytosis noted. No blasts seen. Additional studies as clinically warranted. Reviewed by Dr. Neil 4 Because ethnic data is not always readily available, this report includes an eGFR for both -Americans and non- Americans. The National Kidney Disease Education Program (NKDEP) does not endorse the use of the MDRD equation for patients that are not between the ages of 18 and 70, are , have extremes of body size, muscle mass, or nutritional status, or are non- or non-. According to the National Kidney Foundation, irrespective of diagnosis, the stage of the disease is based on the level of kidney function: Stage Description GFR(mL/min/1.73 m(2)) 1 Kidney damage with normal or decreased GFR 90 2 Kidney damage with mild decrease in GFR 60-89 3 Moderate decrease in GFR 30-59 4 Severe decrease in GFR 15-29 5 Kidney failure <15 (or dialysis) 5 Desirable: <150 Borderline High: 150-199 High: 200-499 Very High: >500 6 Desirable: <200 Borderline High: 200-239 High: >239 7 Low: <40 Desirable: 40-60 High: >60 8 Desirable: <100 Near Optimal: 100-129 Borderline High: 130-159 High: 160-189 Very High: >189 9 Monospot added per pathologist's request. 10 Serum levels of PSA measured using the Prashanth Leon DXI Hybritech immunoassay should not be interpreted as absolute evidence of the presence or absence of disease. The PSA value should be used in conjunction with other pertinent clinical diagnostic procedures. The values obtained with different assay methods or kits cannot be used interchangeably. 11 Because ethnic data is not always readily available, this report includes an eGFR for both -Americans and non- Americans. The National Kidney Disease Education Program (NKDEP) does not endorse the use of the MDRD equation for patients that are not between the ages of 18 and 70, are , have extremes of body size, muscle mass, or nutritional status, or are non- or non-. According to the National Kidney Foundation, irrespective of diagnosis, the stage of the disease is based on the level of kidney function: Stage Description GFR(mL/min/1.73 m(2)) 1 Kidney damage with normal or decreased GFR 90 2 Kidney damage with mild decrease in GFR 60-89 3 Moderate decrease in GFR 30-59 4 Severe decrease in GFR 15-29 5 Kidney failure <15 (or dialysis) 12 Desirable <150 Borderline high 150-199 High 200-499 Very High >500 13 Desirable <200 Borderline high 200-239 High >239 14 Low <40 Desirable: 40-60 High: >60 15 Desirable: <100 mg/dL Near Optimal: 100-129 mg/dL Borderline High: 130-159 mg/dL High: 160-189 mg/dL Very High: >189 mg/dL 16 Serum levels of PSA measured using the Prashanth Leon DXI Hybritech immunoassay should not be interpreted as absolute evidence of the presence or absence of disease. The PSA value should be used in conjunction with other pertinent clinical diagnostic procedures. The values obtained with different assay methods or kits cannot be used interchangeably. 17 [id number] 18 SEE RESULT BELOW Name: STEPHANY CLAROS : [address]: Elio Ruiz MD Acct: [id number] Unit: [id number] AGE: 61 Location: [facility] Re09/22/16 SEX: M Status: [place] [facility] [place]C: [id number] ANTONI: 09/22/16-[address] [facility] [address]: Elio Ruiz MD REQ: [id number] RECD: 09/22/16-1615 STATUS: [facility] R[facility] DR: Rudi Chopra MD _ ORDERED: LEVEL IV COMMENTS: [id number] FINAL DIAGNOSIS Skin, right forearm, wide excision: -- Scar, widely excised. -- No evidence of residual atypical melanocytic proliferation. COMMENT: The previous lesion at this site ([id number]) has been completely and widely excised. CLINICAL HISTORY PRE-OPERATIVE DIAGNOSIS Suture mcleod 12 o'clock proximal apex margin GROSS DESCRIPTION The specimen is received in formalin labeled, Wide Excision Atypical Melanocytic Proliferation Right Forearm, Suture Mcleod 12:00 Proximal [place] Margin, and consists of a 5.8 x 1.4 cm layton hairbearing skin ellipse excised to a depth of 0.7 cm with a central 2.6 by up to 0.4 cm probable alvarez-white scar. There is a suture attached to one long axis, which designates the 12:00 proximal apex margin. The specimen is inked as follows : 9:00 half black, 3:00 half blue and 12:00 tip green, serially sectioned from 12:00 to 6 :00 and entirely submitted in cassettes A through G to include ellipse ends in cassette A. Signed (signature on file) Tanvi Borges MD 01/07 1600 END OF REPORT * ML=Testing performed at Main Lab DEPARTMENT OF PATHOLOGY, [address] [place] [address] Elvis Neil M.D. Director [facility] # [id number] 19 [id number] SEE RESULT BELOW Name: STEPHANY CLAROS : [address]: Elio Ruiz MD Acct: [id number] Unit: [id number] AGE: 61 Location: [facility] Re08/24/16 SEX: M Status: REG REF SPEC: [id number] ANTONI: 08/24/[address] [facility] [address]: Elio Ruiz MD REQ: [id number] RECD: 08/24/16 STATUS: [facility] R[facility] DR: Rudi Chopra MD _ ORDERED: MB-45 (HMB-45), LEVEL IV, [id number], [id number]-ADD COMMENTS: [id number] FINAL DIAGNOSIS Skin, right dorsal forearm, excision: -- Atypical melanocytic proliferation; see comment. COMMENT: This lesion consists of a regressing melanocytic neoplasm that is at least a compound melanocytic nevus with architectural disorder and severe cytologic atypia. A nearly completely regressed superficially invasive (pT1) malignant melanoma cannot be completely excluded. Only a focal intact area of remaining atypical melanocytic neoplasm is present and it extends to a depth of 0.17 mm. Predominantly, the lesion is composed of a lichenoid inflammatory infiltrate with near absence of melanocytes, evidence of regression. 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 The maximum depth of regression is 0.42 mm. Although the epidermis is focally necrotic, there is no evidence of ulceration. Mitotic figures are not seen in the few remaining nests of atypical dermal melanocytes. An orienting diagram showing the lesion's relationship to margins is provided below. Although the lesion is completely excised, a wider excision is recommended given the possibility that this lesion may represent a superficially invasive malignant melanoma. CONTINUED ON NEXT PAGE * ML=Testing performed at Main Lab DEPARTMENT OF PATHOLOGY, [address] [place] [address] Elvis Neil M.D. Director [facility] # [id number] RUN DATE: 08/26/16 [facility] LAB LIVE PAGE 2 Patient: STEPHANY CLAROS [id number] (Continued) PRE-OPERATIVE DIAGNOSIS (Continued) PRE-OPERATIVE DIAGNOSIS New onset irregular skin lesion; suture mcleod 12 o'clock proximal apex margin GROSS DESCRIPTION The specimen is received in formalin labeled, Excision Skin Lesion Right Dorsal Forearm, Suture Mcleod 12:00 Proximal [place] Margin, and consists of a 3.0 x 1.0 cm layton- white hairbearing skin ellipse excised to a depth of 0.4 cm with a central 0.7 x 0.5 cm layton-brown indurated area. There is a suture attached to one long axis designating the 12:00 proximal apex margin. The specimen is inked as follows: 9:00 half black, 3:00 half blue, 12:00 tip green serially sectioned from 12:00 to 6:00 and entirely submitted in cassettes A through C to include tips in cassette A and lesion in cassette C. MICROSCOPIC DESCRIPTION Histologic sections show an excisional specimen of skin excised to include subcutaneous tissue. Toward the center of the specimen the superficial portion of the epidermis is necrotic with partial thickness epidermal sloughing. The papillary dermis in this area demonstrates a dense interstitial lymphoid infiltrate with basilar vacuolar change, numerous monocytoid bodies in the epidermis, and pigment incontinence. The dense inflammatory infiltrate extends to a depth of 0.42 mm. Solar elastosis is prominent in the papillary dermis. Adjacent to the dense inflammatory infiltrate, increased individual melanocytes with moderate to severe cytologic atypia are present at the dermal-epidermal junction with some evidence of pagetoid extension, but not into the granular layer. A few nests of moderately to severely atypical melanocytes are present in the papillary dermis to a depth of 0.17 mm. Deeper levels of sectioning show similar histologic features. Immunohistochemical stains, with appropriately reacting controls, were performed for HMB-45, Melan-A, and SOX 10 and show that this described area has a near confluent proliferation of atypical melanocytes with a few superficial nests in the dermis and decreased melanocytes in the area of dense inflammation. The atypical melanocytic proliferation is present 2.5 mm from the 9:00 and 3:00 lateral specimen margins and is 3.7 mm from the specimen base. Signed (signature on file) Tanvi Borges MD 10/07 1557 END OF REPORT * ML=Testing performed at Main Lab DEPARTMENT OF PATHOLOGY, [address] [place] [address] Elvis Neil M.D. Director [facility] # [id number] 21 [id number] 22 SEE RESULT BELOW Name: STEPHANY CLAROS : [address]: Armando Javier MD Acct: [id number] Unit: [id number] AGE: 61 Location: ENDOC Re08/01/16 SEX: M Status: DEP REF SPEC: [id number] ANTONI: 08/01/16-[address] [facility] [address]: Armando Javier MD REQ: [id number] RECD: 08/01/16 STATUS: DIANA ROTHMAN DR: Rudi Becerra MD _ SOURCE: [facility]: ORDERED: Clotest COMMENTS: [id number] Procedure Result Reported Site Clotest Final 08/02/16- 735 ML Clotest Negative * ML - [facility] ([facility]) . END OF REPORT * ML=Testing performed at Main Lab DEPARTMENT OF PATHOLOGY, [address] [place] [address] Elvis Neil M.D. Director [facility] # [id number] 23 Acute inflammation: >10.00 24 Because ethnic data is not always readily available, this report includes an eGFR for both -Americans and non- Americans. The National Kidney Disease Education Program (NKDEP) does not endorse the use of the MDRD equation for patients that are not between the ages of 18 and 70, are , have extremes of body size, muscle mass, or nutritional status, or are non- or non-. According to the National Kidney Foundation, irrespective of diagnosis, the stage of the disease is based on the level of kidney function: Stage Description GFR(mL/min/1.73 m(2)) 1 Kidney damage with normal or decreased GFR 90 2 Kidney damage with mild decrease in GFR 60-89 3 Moderate decrease in GFR 30-59 4 Severe decrease in GFR 15-29 5 Kidney failure <15 (or dialysis) 25 Specimen Lipemic. Result may not be valid. 26 Because ethnic data is not always readily available, this report includes an eGFR for both -Americans and non- Americans. The National Kidney Disease Education Program (NKDEP) does not endorse the use of the MDRD equation for patients that are not between the ages of 18 and 70, are , have extremes of body size, muscle mass, or nutritional status, or are non- or non-. According to the National Kidney Foundation, irrespective of diagnosis, the stage of the disease is based on the level of kidney function: Stage Description GFR(mL/min/1.73 m(2)) 1 Kidney damage with normal or decreased GFR 90 2 Kidney damage with mild decrease in GFR 60-89 3 Moderate decrease in GFR 30-59 4 Severe decrease in GFR 15-29 5 Kidney failure <15 (or dialysis) 27 Acute inflammation: >10.00 28 >100 to <200 pg/mL: likely compensated congestive heart failure (CHF) 200 to 400 pg/mL: likely moderate CHF >400 pg/mL: likely moderate to severe CHF 29 *Ascorbic acid is present which may interfere with detection of blood. 30 Reference Range and Interpretation: TnI (ng/mL) Interpretation Less Than 0.03 ng/mL Not supportive of diagnosis of [place] 0.03 - 0.50 ng/mL Indeterminate: suggest serial studies if clinically indicated. Greater than 0.5 ng/mL Consistent with diagnosis of IL 31 [facility] Severe Sepsis and Septic Shock Management Bundle Measure requires all lactic acids initially measuring >2.0mmol/L be repeated. 32 >100 to <200 pg/mL: likely compensated congestive heart failure (CHF) 200 to 400 pg/mL: likely moderate CHF >400 pg/mL: likely moderate to severe CHF 33 *Ascorbic acid is present which may interfere with detection of blood. 34 Because ethnic data is not always readily available, this report includes an eGFR for both -Americans and non- Americans. The National Kidney Disease Education Program (NKDEP) does not endorse the use of the MDRD equation for patients that are not between the ages of 18 and 70, are , have extremes of body size, muscle mass, or nutritional status, or are non- or non-. According to the National Kidney Foundation, irrespective of diagnosis, the stage of the disease is based on the level of kidney function: Stage Description GFR(mL/min/1.73 m(2)) 1 Kidney damage with normal or decreased GFR 90 2 Kidney damage with mild decrease in GFR 60-89 3 Moderate decrease in GFR 30-59 4 Severe decrease in GFR 15-29 5 Kidney failure <15 (or dialysis) 35 Acute inflammation: >10.00 36 Reference Range and Interpretation: TnI (ng/mL) Interpretation Less Than 0.03 ng/mL Not supportive of diagnosis of IL 0.03 - 0.50 ng/mL Indeterminate: suggest serial studies if clinically indicated. Greater than 0.5 ng/mL Consistent with diagnosis of IL 37 Serum levels of PSA measured using the Prashanth TNC DXI Hybritech immunoassay should not be interpreted as absolute evidence of the presence or absence of disease. The PSA value should be used in conjunction with other pertinent clinical diagnostic procedures. The values obtained with different assay methods or kits cannot be used interchangeably. 38 Desirable <150 Borderline high 150-199 High 200-499 Very High >500 39 Desirable <200 Borderline high 200-239 High >239 40 Low <40 Desirable: 40-60 High: >60 41 Desirable: <100 mg/dL Near Optimal: 100-129 mg/dL Borderline High: 130-159 mg/dL High: 160-189 mg/dL Very High: >189 mg/dL 42 Desirable <150 Borderline high 150-199 High 200-499 Very High >500 43 Desirable <200 Borderline high 200-239 High >239 44 Low <40 Desirable: 40-60 High: >60 45 Desirable: <100 mg/dL Near Optimal: 100-129 mg/dL Borderline High: 130-159 mg/dL High: 160-189 mg/dL Very High: >189 mg/dL 46 SEE RESULT BELOW Name: STEPHANY CLAROS : [address]: Elio Ruiz MD Acct: [id number] Unit: [id number] AGE: 59 Location: [facility] Re01/30/15 SEX: M Status: REG REF SPEC: [id number] ANTONI: 01/30/15-[address] [facility] [address]: Elio Ruiz MD REQ: [id number] RECD: 01/30/153534 STATUS: [facility] ROTHMAN DR: Rudi Chopra MD _ ORDERED: LEVEL IV FINAL DIAGNOSIS Skin, right jew, excision: -- Sebaceous skin with actinic keratosis. -- No melanocytic neoplasia identified. CLINICAL HISTORY Recent erythematous lesion adjacent to melanoma excision scar GROSS DESCRIPTION The specimen is received in formalin labeled, Incisional Biopsy Skin Lesion Right [place], and consists of a 1.1 x 0.4 cm lay[place] hairbearing unoriented skin ellipse excised to a depth of 0.2 cm. The specimen is inked, trisected and submitted entirely in one cassette. Signed (signature on file) Elvis Neil MD 1221 END OF REPORT * ML=Testing performed at Main Lab DEPARTMENT OF PATHOLOGY, [address] [place] [address] Elvis Neil M.D. Director [facility] # [id number] 47 Serum levels of PSA measured using the Prashanth TNC DXI Hybritech immunoassay should not be interpreted as absolute evidence of the presence or absence of disease. The PSA value should be used in conjunction with other pertinent clinical diagnostic procedures. The values obtained with different assay methods or kits cannot be used interchangeably. 48 Desirable <150 Borderline high 150-199 High 200-499 Very High >500 49 Desirable <200 Borderline high 200-239 High >239 50 Low <40 Desirable: 40-60 High: >60 51 Desirable <100 Near Optimal 100-129 Borderline high 130-159 High 160-189 Very High >189 52 Because ethnic data is not always readily available, this report includes an eGFR for both -Americans and non- Americans. The National Kidney Disease Education Program (NKDEP) does not endorse the use of the MDRD equation for patients that are not between the ages of 18 and 70, are , have extremes of body size, muscle mass, or nutritional status, or are non- or non-. According to the National Kidney Foundation, irrespective of diagnosis, the stage of the disease is based on the level of kidney function: Stage Description GFR(mL/min/1.73 m(2)) 1 Kidney damage with normal or decreased GFR 90 2 Kidney damage with mild decrease in GFR 60-89 3 Moderate decrease in GFR 30-59 4 Severe decrease in GFR 15-29 5 Kidney failure <15 (or dialysis) 53 PT IS FASTING 54 PT IS FASTING 55 Desirable <150 Borderline high 150-199 High 200-499 Very High >500 56 Desirable <200 Borderline high 200-239 High >239 57 Low <40 Desirable: 40-60 High: >60 58 Desirable <100 Near Optimal 100-129 Borderline high 130-159 High 160-189 Very High >189 59 Because ethnic data is not always readily available, this report includes an eGFR for both -Americans and non- Americans. The National Kidney Disease Education Program (NKDEP) does not endorse the use of the MDRD equation for patients that are not between the ages of 18 and 70, are , have extremes of body size, muscle mass, or nutritional status, or are non- or non-. According to the National Kidney Foundation, irrespective of diagnosis, the stage of the disease is based on the level of kidney function: Stage Description GFR(mL/min/1.73 m(2)) 1 Kidney damage with normal or decreased GFR 90 2 Kidney damage with mild decrease in GFR 60-89 3 Moderate decrease in GFR 30-59 4 Severe decrease in GFR 15-29 5 Kidney failure <15 (or dialysis) 60 PT IS FASTING 61 Serum levels of PSA measured using the Prashanth TNC DXI Hybritech immunoassay should not be interpreted as absolute evidence of the presence or absence of disease. The PSA value should be used in conjunction with other pertinent clinical diagnostic procedures. The values obtained with different assay methods or kits cannot be used interchangeably. 62 Because ethnic data is not always readily available, this report includes an eGFR for both -Americans and non- Americans. The National Kidney Disease Education Program (NKDEP) does not endorse the use of the MDRD equation for patients that are not between the ages of 18 and 70, are , have extremes of body size, muscle mass, or nutritional status, or are non- or non-. According to the National Kidney Foundation, irrespective of diagnosis, the stage of the disease is based on the level of kidney function: Stage Description GFR(mL/min/1.73 m(2)) 1 Kidney damage with normal or decreased GFR 90 2 Kidney damage with mild decrease in GFR 60-89 3 Moderate decrease in GFR 30-59 4 Severe decrease in GFR 15-29 5 Kidney failure <15 (or dialysis) 63 HDL Interpretation: Undesirable: High Risk: Less than 40 mg/dL Desirable: Low Risk: Greater than 60 mg/dL 64 LDL Interpretation: Low Risk Optimal Level: LDL Less than 100 mg/dL Near or Above Optimal: LDL 100-129 mg/dL Borderline High Risk: LDL 130-159 mg/dL High Risk: LDL 160-189 mg/dL Very High Risk: LDL Greater than 189 mg/dL 65 Serum levels of PSA measured using the MOG DXI Hybritech immunoassay should not be interpreted as absolute evidence of the presence or absence of disease. The PSA value should be used in conjunction with other pertinent clinical diagnostic procedures. The values obtained with different assay methods or kits cannot be used interchangeably. 66 FASTING 67 FASTING 68 HDL Interpretation: Undesirable: High Risk: Less than 40 MG/DL Desirable: Low Risk: Greater than 60 MG/DL 69 LDL Interpretation: Low Risk Optimal Level: LDL Less than 100 MG/DL Near or Above Optimal: LDL 100-129 MG/DL Borderline High Risk: LDL 130-159 MG/DL High Risk: LDL 160-189 MG/DL Very High Risk: LDL Greater than 189 MG/DL 70 Because ethnic data is not always readily available, this report includes an eGFR for both -Americans and non- Americans. The National Kidney Disease Education Program (NKDEP) does not endorse the use of the MDRD equation for patients that are not between the ages of 18 and 70, are , have extremes of body size, muscle mass, or nutritional status, or are non- or non-. According to the National Kidney Foundation, irrespective of diagnosis, the stage of the disease is based on the level of kidney function: Stage Description GFR(mL/min/1.73 m(2)) 1 Kidney damage with normal or decreased GFR 90 2 Kidney damage with mild decrease in GFR 60-89 3 Moderate decrease in GFR 30-59 4 Severe decrease in GFR 15-29 5 Kidney failure <15 (or dialysis) 71 FASTING 72 The World Health Organization (WHO) Hepatitis B Immunoglobulin 1st International Reference Preparation (1976): The accepted criteria for immunity to HBV is anti-HBs activity greater than or equal to 10 mIU/mL. An Index Value of 1.00 is equivalent to 10 mIU/mL. Samples with an Index Value of 1.00 or greater are considered reactive (protective) in accordance with the CDC guidelines. 73 Please note the change in INR reference range effective 12. The INR(International Normalized Ratio) was adopted by the World Health Organization (WHO) in 1982 as a standardized system of reporting PT (Prothrombin Time). The Centers for Disease Control (CDC) states that reporting of PT results in INR only is the preferred method. Recommended INR for Patients on Oral Anticoagulants Prophylaxis 2.0 - 3.0 Treatment of thrombosis 2.0 - 3.0 Prevention of embolism 2.0 - 3.0 Prevention of embolism from prosthetic heart valves 2.5 - 3.5 74 Please note the change in INR reference range effective 12. The INR(International Normalized Ratio) was adopted by the World Health Organization (WHO) in 1982 as a standardized system of reporting PT (Prothrombin Time). The Centers for Disease Control (CDC) states that reporting of PT results in INR only is the preferred method. Recommended INR for Patients on Oral Anticoagulants Prophylaxis 2.0 - 3.0 Treatment of thrombosis 2.0 - 3.0 Prevention of embolism 2.0 - 3.0 Prevention of embolism from prosthetic heart valves 2.5 - 3.5 75 Please note the change in INR reference range effective 12. The INR(International Normalized Ratio) was adopted by the World Health Organization (WHO) in 1982 as a standardized system of reporting PT (Prothrombin Time). The Centers for Disease Control (CDC) states that reporting of PT results in INR only is the preferred method. Recommended INR for Patients on Oral Anticoagulants Prophylaxis 2.0 - 3.0 Treatment of thrombosis 2.0 - 3.0 Prevention of embolism 2.0 - 3.0 Prevention of embolism from prosthetic heart valves 2.5 - 3.5 76 Please note the change in INR reference range effective 12. The INR(International Normalized Ratio) was adopted by the World Health Organization (WHO) in 1982 as a standardized system of reporting PT (Prothrombin Time). The Centers for Disease Control (CDC) states that reporting of PT results in INR only is the preferred method. Recommended INR for Patients on Oral Anticoagulants Prophylaxis 2.0 - 3.0 Treatment of thrombosis 2.0 - 3.0 Prevention of embolism 2.0 - 3.0 Prevention of embolism from prosthetic heart valves 2.5 - 3.5 77 Please note the change in INR reference range effective 12. The INR(International Normalized Ratio) was adopted by the World Health Organization (WHO) in 1982 as a standardized system of reporting PT (Prothrombin Time). The Centers for Disease Control (CDC) states that reporting of PT results in INR only is the preferred method. Recommended INR for Patients on Oral Anticoagulants Prophylaxis 2.0 - 3.0 Treatment of thrombosis 2.0 - 3.0 Prevention of embolism 2.0 - 3.0 Prevention of embolism from prosthetic heart valves 2.5 - 3.5 78 Please note the change in INR reference range effective 12. The INR(International Normalized Ratio) was adopted by the World Health Organization (WHO) in 1982 as a standardized system of reporting PT (Prothrombin Time). The Centers for Disease Control (CDC) states that reporting of PT results in INR only is the preferred method. Recommended INR for Patients on Oral Anticoagulants Prophylaxis 2.0 - 3.0 Treatment of thrombosis 2.0 - 3.0 Prevention of embolism 2.0 - 3.0 Prevention of embolism from prosthetic heart valves 2.5 - 3.5 79 Please note the change in INR reference range effective 12. The INR(International Normalized Ratio) was adopted by the World Health Organization (WHO) in 1982 as a standardized system of reporting PT (Prothrombin Time). The Centers for Disease Control (CDC) states that reporting of PT results in INR only is the preferred method. Recommended INR for Patients on Oral Anticoagulants Prophylaxis 2.0 - 3.0 Treatment of thrombosis 2.0 - 3.0 Prevention of embolism 2.0 - 3.0 Prevention of embolism from prosthetic heart valves 2.5 - 3.5 80 The INR(International Normalized Ratio) was adopted by the World Health Organization (WHO) in 1982 as a standardized system of reporting PT (Prothrombin Time). The Centers for Disease Control (CDC) states that reporting of PT results in INR only is the preferred method. Recommended INR for Patients on Oral Anticoagulants Prophylaxis 2.0 - 3.0 Treatment of thrombosis 2.0 - 3.0 Prevention of embolism 2.0 - 3.0 Prevention of embolism from prosthetic heart valves 2.5 - 3.5 81 The INR(International Normalized Ratio) was adopted by the World Health Organization (WHO) in 1982 as a standardized system of reporting PT (Prothrombin Time). The Centers for Disease Control (CDC) states that reporting of PT results in INR only is the preferred method. Recommended INR for Patients on Oral Anticoagulants Prophylaxis 2.0 - 3.0 Treatment of thrombosis 2.0 - 3.0 Prevention of embolism 2.0 - 3.0 Prevention of embolism from prosthetic heart valves 2.5 - 3.5 82 Because ethnic data is not always readily available, this report includes an eGFR for both -Americans and non- Americans. The National Kidney Disease Education Program (NKDEP) does not endorse the use of the MDRD equation for patients that are not between the ages of 18 and 70, are , have extremes of body size, muscle mass, or nutritional status, or are non- or non-. According to the National Kidney Foundation, irrespective of diagnosis, the stage of the disease is based on the level of kidney function: Stage Description GFR(mL/min/1.73 m(2)) 1 Kidney damage with normal or decreased GFR 90 2 Kidney damage with mild decrease in GFR 60-89 3 Moderate decrease in GFR 30-59 4 Severe decrease in GFR 15-29 5 Kidney failure <15 (or dialysis) 83 Reference Range and Interpretation: TnI (ng/ml) Interpretation Less Than 0.06 ng/mL Not supportive of diagnosis of [place] 0.06 - 0.50 ng/ml Indeterminate: suggest serial studies if clinically indicated. Greater than 0.5 ng/mL Consistent with diagnosis of IL 84 The INR(International Normalized Ratio) was adopted by the World Health Organization (WHO) in 1982 as a standardized system of reporting PT (Prothrombin Time). The Centers for Disease Control (CDC) states that reporting of PT results in INR only is the preferred method. Recommended INR for Patients on Oral Anticoagulants Prophylaxis 2.0 - 3.0 Treatment of thrombosis 2.0 - 3.0 Prevention of embolism 2.0 - 3.0 Prevention of embolism from prosthetic heart valves 2.5 - 3.5 85 ATPICAL LYMPHOCYTES PRESENT. SUGGESTIVE OF VIRAL INFECTION. REVIEWED BY Dayana THIBODEAUX 86 Serum levels of PSA measured using the MOG DXI Hybritech immunoassay should not be interpreted as absolute evidence of the presence or absence of disease. The PSA value should be used in conjunction with other pertinent clinical diagnostic procedures. The values obtained with different assay methods or kits cannot be used interchangeably. 87 Desirable: Less than 200 MG/DL Borderline-High Risk: 200-239 MG/DL High-Risk: 240 MG/DL and over 88 HDL Interpretation: Undesirable: High Risk: Less than 40 MG/DL Desirable: Low Risk: Greater than 60 MG/DL 89 A metabolite of Naproxen, O-desmethylnaproxen, has been shown to interfere with the Jendrassik-Crooks method for measuring total bilirubin. Samples from patients who have taken Naproxen have shown spurious elevation in total bilirubin levels. 90 Because ethnic data is not always readily available, this report includes an eGFR for both -Americans and non- Americans. The National Kidney Disease Education Program (NKDEP) does not endorse the use of the MDRD equation for patients that are not between the ages of 18 and 70, are , have extremes of body size, muscle mass, or nutritional status, or are non- or non-. According to the National Kidney Foundation, irrespective of diagnosis, the stage of the disease is based on the level of kidney function: Stage Description GFR(mL/min/1.73 m(2)) 1 Kidney damage with normal or decreased GFR 90 2 Kidney damage with mild decrease in GFR 60-89 3 Moderate decrease in GFR 30-59 4 Severe decrease in GFR 15-29 5 Kidney failure <15 (or dialysis) 91 FASTING 92 CHOLESTEROL INTERPRETATION: Desirable: Less than 200 MG/DL Borderline-High Risk: 200-239 MG/DL High-Risk: 240 MG/DL and over 93 HDL INTERPRETATION: Undesirable: High Risk: Less than 40 MG/DL Desirable: Low Risk: Greater than 60 MG/DL 94 LDL INTERPRETATION: Low Risk Optimal Level: LDL Less than 100 MG/DL Near or Above Optimal: LDL 100-129 MG/DL Borderline High Risk: LDL 130-159 MG/DL High Risk: LDL 160-189 MG/DL Very High Risk: LDL Greater than 189 MG/DL 95 Anion gap measurement may be of limited value in the presence of any alkalosis, especially in a combined acid base disorder. . 96 A metabolite of Naproxen, O-desmethylnaproxen, has been shown to interfere with the Jendrassik-Crooks method for measuring total bilirubin. Samples from patients who have taken Naproxen have shown spurious elevation in total bilirubin levels. 97 Because ethnic data is not always readily available, this report includes an eGFR for both -Americans and non- Americans. The National Kidney Disease Education Program (NKDEP) does not endorse the use of the MDRD equation for patients that are not between the ages of 18 and 70, are , have extremes of body size, muscle mass, or nutritional status, or are non- or non-. According to the National Kidney Foundation, irrespective of diagnosis, the stage of the disease is based on the level of kidney function: Stage Description GFR(mL/min/1.73 m(2)) 1 Kidney damage with normal or decreased GFR 90 2 Kidney damage with mild decrease in GFR 60-89 3 Moderate decrease in GFR 30-59 4 Severe decrease in GFR 15-29 5 Kidney failure <15 (or dialysis) 98 CHOLESTEROL INTERPRETATION: Desirable: Less than 200 MG/DL Borderline-High Risk: 200-239 MG/DL High-Risk: 240 MG/DL and over 99 HDL INTERPRETATION: Undesirable: High Risk: Less than 40 MG/DL Desirable: Low Risk: Greater than 60 MG/DL 100 LDL INTERPRETATION: Low Risk Optimal Level: LDL Less than 100 MG/DL Near or Above Optimal: LDL 100-129 MG/DL Borderline High Risk: LDL 130-159 MG/DL High Risk: LDL 160-189 MG/DL Very High Risk: LDL Greater than 189 MG/DL 101 CHOLESTEROL INTERPRETATION: Desirable: Less than 200 MG/DL Borderline-High Risk: 200-239 MG/DL High-Risk: 240 MG/DL and over 102 HDL INTERPRETATION: Undesirable: High Risk: Less than 40 MG/DL Desirable: Low Risk: Greater than 60 MG/DL 103 LDL INTERPRETATION: Low Risk Optimal Level: LDL Less than 100 MG/DL Near or Above Optimal: LDL 100-129 MG/DL Borderline High Risk: LDL 130-159 MG/DL High Risk: LDL 160-189 MG/DL Very High Risk: LDL Greater than 189 MG/DL 104 CHOLESTEROL INTERPRETATION: Desirable: Less than 200 MG/DL Borderline-High Risk: 200-239 MG/DL High-Risk: 240 MG/DL and over 105 HDL INTERPRETATION: Undesirable: High Risk: Less than 40 MG/DL Desirable: Low Risk: Greater than 60 MG/DL 106 LDL INTERPRETATION: Low Risk Optimal Level: LDL Less than 100 MG/DL Near or Above Optimal: LDL 100-129 MG/DL Borderline High Risk: LDL 130-159 MG/DL High Risk: LDL 160-189 MG/DL Very High Risk: LDL Greater than 189 MG/DL 107 Recommended INR for Patients on Oral Anticoagulants Prophylaxis 2.0 - 3.0 Treatment of thrombosis 2.0 - 3.0 Prevention of embolism 2.0 - 3.0 Prevention of embolism from prosthetic heart valves 2.5 - 3.5 108 DIAGNOSIS,TREATMENT,AND THERAPY MUST BE BASED ON THE INR VALUE ALONE. 109 Anion gap measurement may be of limited value in the presence of any alkalosis, especially in a combined acid base disorder. . 110 Note change in reference range as of 03/13/08. The change was based on recommendations from the [place] [employer]. 111 A metabolite of Naproxen, O-desmethylnaproxen, has been shown to interfere with the Jendrassik-Shanae method for measuring total bilirubin. Samples from patients who have taken Naproxen have shown spurious elevation in total bilirubin levels. 112 Because ethnic data is not always readily available, this report includes an eGFR for both -Americans and non- Americans. The National Kidney Disease Education Program (NKDEP) does not endorse the use of the MDRD equation for patients that are not between the ages of 18 and 70, are , have extremes of body size, muscle mass, or nutritional status, or are non- or non-. According to the National Kidney Foundation, irrespective of diagnosis, the stage of the disease is based on the level of kidney function: Stage Description GFR(mL/min/1.73 m(2)) 1 Kidney damage with normal or decreased GFR 90 2 Kidney damage with mild decrease in GFR 60-89 3 Moderate decrease in GFR 30-59 4 Severe decrease in GFR 15-29 5 Kidney failure <15 (or dialysis) 113 New Reference Range and Interpretation effective 04/26/2002 TnI (ng/ml) INTERPRETATION Less Than 0.06 ng/mL NOT SUPPORTIVE OF DIAGNOSIS OF [place] 0.06 - 0.50 ng/ml INDETERMINATE: SUGGEST SERIAL STUDIES IF CLINICALLY INDICATED. Greater than 0.5 ng/mL CONSISTENT WITH DIAGNOSIS OF [place] . 114 Anion gap measurement may be of limited value in the presence of any alkalosis, especially in a combined acid base disorder. . 115 Note change in reference range as of 03/13/08. The change was based on recommendations from the [place] [employer]. 116 Please note change in reference range effective 07 . 117 A metabolite of Naproxen, O-desmethylnaproxen, has been shown to interfere with the Jendrassik-Shanae method for measuring total bilirubin. Samples from patients who have taken Naproxen have shown spurious elevation in total bilirubin levels. 118 Because ethnic data is not always readily available, this report includes an eGFR for both -Americans and non- Americans. The National Kidney Disease Education Program (NKDEP) does not endorse the use of the MDRD equation for patients that are not between the ages of 18 and 70, are , have extremes of body size, muscle mass, or nutritional status, or are non- or non-. According to the National Kidney Foundation, irrespective of diagnosis, the stage of the disease is based on the level of kidney function: Stage Description GFR(mL/min/1.73 m(2)) 1 Kidney damage with normal or decreased GFR 90 2 Kidney damage with mild decrease in GFR 60-89 3 Moderate decrease in GFR 30-59 4 Severe decrease in GFR 15-29 5 Kidney failure <15 (or dialysis) 119 CHOLESTEROL INTERPRETATION: Desirable: Less than 200 MG/DL Borderline-High Risk: 200-239 MG/DL High-Risk: 240 MG/DL and over 120 HDL INTERPRETATION: Undesirable: High Risk: Less than 40 MG/DL Desirable: Low Risk: Greater than 60 MG/DL 121 LDL INTERPRETATION: Low Risk Optimal Level: LDL Less than 100 MG/DL Near or Above Optimal: LDL 100-129 MG/DL Borderline High Risk: LDL 130-159 MG/DL High Risk: LDL 160-189 MG/DL Very High Risk: LDL Greater than 189 MG/DL 122 * SERUM LEVELS OF PSA MEASURED USING THE Digital Reef ACCESS HYBRITECH IMMUNOASSAY SHOULD NOT BE INTERPRETED ABSOLUTE EVIDENCE OF THE PRESENCE OR ABSENCE OF DISEASE. THE PSA VALUE SHOULD BE USED IN CONJUNCTION WITH OTHER PERTINENT CLINICAL DIAGNOSTIC PROCEDURES. A PSA value in the range of 0.1 to 0.6 ng/ml is indeterminate if being used as an indicator of recurrent or residual disease. . 123 CHOLESTEROL INTERPRETATION: Desirable: Less than 200 MG/DL Borderline-High Risk: 200-239 MG/DL High-Risk: 240 MG/DL and over 124 HDL INTERPRETATION: Undesirable: High Risk: Less than 40 MG/DL Desirable: Low Risk: Greater than 60 MG/DL 125 LDL INTERPRETATION: Low Risk Optimal Level: LDL Less than 100 MG/DL Near or Above Optimal: LDL 100-129 MG/DL Borderline High Risk: LDL 130-159 MG/DL High Risk: LDL 160-189 MG/DL Very High Risk: LDL Greater than 189 MG/DL 126 CHOLESTEROL INTERPRETATION: Desirable: Less than 200 MG/DL Borderline-High Risk: 200-239 MG/DL High-Risk: 240 MG/DL and over 127 HDL INTERPRETATION: Undesirable: High Risk: Less than 40 MG/DL Desirable: Low Risk: Greater than 60 MG/DL 128 LDL INTERPRETATION: Low Risk Optimal Level: LDL Less than 100 MG/DL Near or Above Optimal: LDL 100-129 MG/DL Borderline High Risk: LDL 130-159 MG/DL High Risk: LDL 160-189 MG/DL Very High Risk: LDL Greater than 189 MG/DL 129 CHOLESTEROL INTERPRETATION: Desirable: Less than 200 MG/DL Borderline-High Risk: 200-239 MG/DL High-Risk: 240 MG/DL and over 130 HDL INTERPRETATION: Undesirable: High Risk: Less than 40 MG/DL Desirable: Low Risk: Greater than 60 MG/DL 131 LDL INTERPRETATION: Low Risk Optimal Level: LDL Less than 100 MG/DL Near or Above Optimal: LDL 100-129 MG/DL Borderline High Risk: LDL 130-159 MG/DL High Risk: LDL 160-189 MG/DL Very High Risk: LDL Greater than 189 MG/DL 132 CHOLESTEROL INTERPRETATION: Desirable: Less than 200 MG/DL Borderline-High Risk: 200-239 MG/DL High-Risk: 240 MG/DL and over 133 HDL INTERPRETATION: Undesirable: High Risk: Less than 40 MG/DL Desirable: Low Risk: Greater than 60 MG/DL 134 LDL INTERPRETATION: Low Risk Optimal Level: LDL Less than 100 MG/DL Near or Above Optimal: LDL 100-129 MG/DL Borderline High Risk: LDL 130-159 MG/DL High Risk: LDL 160-189 MG/DL Very High Risk: LDL Greater than 189 MG/DL 135 Anion gap measurement may be of limited value in the presence of any alkalosis, especially in a combined acid base disorder. . 136 Note change in reference range as of 03/13/08. The change was based on recommendations from the [place] [employer]. 137 Please note change in reference range effective 07 . Procedures Date CPT Code Description Status Comment 07/24/2016 Colonoscopy Completed normal. Repeat recommended 10 years. (Prior endoscopy 2006 normal) 09/13/2012 52511 EKG, at Least 12 Leads Completed w/Interpretation and Report 05/10/2012 90016 EKG, at Least 12 Leads Completed w/Interpretation and Report 11/28/2008 33475 EKG, at Least 12 Leads Completed w/Interpretation and Report Encounters Type Date Location Provider CPT E/M Dx Office Visit 09/29/2016 2:15p Main Office Rudi Becerra M.D. 90394 Z00.00 C43.30 N20.0 G47.33 Z23 Office Visit 07/14/2016 4:30p Main Office Rudi Becerra M.D. 94867 R51 Office Visit 10/15/2015 4:45p Main Office Rudi Becerra M.D. 18012 R12 G47.33 Office Visit 08/20/2015 2:15p Main Office Rudi Becerra M.D. 02024 Z00.01 C43.30 E78.0 N20.0 G47.33 Z23 Office Visit 05/16/2014 9:00a Main Office Rudi Becerra M.D. 88199 V70.0 172.8 272.0 592.0 443.21 V03.82 Office Visit 11/15/2013 10:15a Main Office Rudi Becerra M.D. 62870 272.0 172.8 592.0 327.23 Office Visit 05/15/2013 8:45a Main Office Rudi Becerra M.D. 23467 V70.0 443.21 272.0 327.23 172.8 592.0 Office Visit 11/27/2012 4:00p Main Office Rudi Becerra M.D. 59331 443.21 272.0 786.59 Office Visit 09/13/2012 11:00a Main Office Rudi Becerra M.D. 89996 786.59 Office Visit 08/22/2012 3:45p Main Office Rudi Becerra M.D. 53608 443.21 272.0 Office Visit 08/17/2012 10:15a Main Office Lalitha Osorio M.D. 70401 443.21 272.0 Office Visit 07/25/2012 11:30a Main Office Rudi Becerra M.D. 40348 465.9 786.50 701.9 Office Visit 05/10/2012 8:45a Main Office Rudi Becerra M.D. 45720 V70.0 272.0 327.23 172.8 592.0 Office Visit 11/03/2011 9:30a Main Office Rudi Becerra M.D. 51075 272.0 327.23 172.8 Office Visit 05/04/2011 9:45a Main Office Rudi Becerra M.D. 02280 V70.0 272.0 327.23 172.8 V06.1 V04.81 Office Visit 03/04/2011 12:00p Main Office Farrah Vivi, [facility] 69943 786.2 Office Visit 01/20/2011 9:45a Main Office Rudi Becerra M.D. 91510 272.0 327.23 Office Visit 10/13/2010 9:45a Main Office Rudi Becerra M.D. 26675 272.0 780.79 Office Visit 04/15/2010 10:45a Main Office Rudi Becerra M.D. 22832 V70.0 272.0 172.8 Office Visit 12/16/2009 11:15a Main Office Rudi Becerra M.D. 92826 564.00 V76.51 Office Visit 10/06/2009 9:45a Main Office Rudi Becerra M.D. 36147 272.0 Office Visit 07/07/2009 9:45a Main Office Rudi Becerra M.D. 57989 272.0 782.9 Office Visit 04/07/2009 9:30a Main Office Rudi Becerra M.D. 54663 272.0 724.2 Office Visit 11/28/2008 9:00a Main Office Rudi Becerra M.D. 94871 V70.0 272.0 724.2 172.8 389.8 Plan of Care 09/27/2017 - Rudi Becerra M.D.Z00.00 Encntr for general adult medical exam w/o abnormal findingsComments:Discussed pros and cons of PSA testing. Patient desires yearly PSA testing. Colon cancer screening is up to date. He will check on shingles vaccine likely wants Shingrix next year.Follow up:CPE in 1 year. Fasting labs a week before.C43.30 Malignant melanoma of unspecified part of faceComments:Prior melanoma. No concerning lesions today.He continues with regular followup with Dr. ChopraN20.0 Calculus of kidneyComments:No recurrence.Annual followup with his [id number] Pure hypercholesterolemia, unspecifiedComments:Tolerating 40 mg a [id number] HeartburnComments: Symptoms controlled with ranitidine and TUMS p.r.n.
[2017-10-22 12:02] VITALS: BP 141/90
--- NOTE | 2017-10-22 12:41 | UC ---
FLU HPI - HPI Summary HPI Summary: c/o chills, cough with occasional production of scant sputum, and general malaise for the past 4 days along with clear nasal discharge. - History of Current Complaint Chief Complaint: UCRespiratory Stated Complaint: FLU SYMPTOMS Time Seen by Provider: 10/22/17 12:28 Hx Obtained From: Patient Onset/Duration: Gradual Onset, Lasting Days Severity Currently: Moderate Severity Initially: Moderate Pain Intensity: 1 Associated Signs & Symptoms: Positive: Fever, Nasal Congestion - Risk Factors Influenza Risk Factors: Negative - Allergy/Home Medications Allergies/Adverse Reactions: Allergies Allergy/AdvReac Type Severity Reaction Status Date / Time nitroglycerin Allergy See Comment Verified 10/22/17 12:03 PMH/Surg Hx/FS Hx/Imm Hx Previously Healthy: Yes Endocrine History: Dyslipidemia - Surgical History Surgical History: Yes Surgery Procedure, Year, and Place: Tonsillectomy as child, 2 melanoma surgeries , lithotripsy - Family History Known Family History: Positive: Cardiac Disease - MOM AND DAD, Diabetes - SISTER - Social History Alcohol Use: Occasionally Alcohol Amount: 1-2 drinks when pt does have occ. drink Substance Use Type: None Smoking Status (MU): Former Smoker Type: Cigarettes Amount Used/How Often: less than 1/2 pk per day Have You Smoked in the Last Year: No When Did the Patient Quit Smoking/Using Tobacco: over 15 years ago - Immunization History Most Recent Influenza Vaccination: 2012 Review of Systems Constitutional: Fever, Chills ENT: Nasal Discharge Respiratory: Cough All Other Systems Reviewed And Are Negative: Yes Physical Exam Triage Information Reviewed: Yes Appearance: Well-Nourished, Ill-Appearing Vital Signs: Initial Vital Signs Temp 97.5 F 10/22/17 11:58 Pulse 76 10/22/17 11:58 Resp 18 10/22/17 11:58 BP 141/90 10/22/17 11:58 Pulse Ox 100 10/22/17 11:58 Vital Signs Reviewed: Yes Eyes: Positive: Conjunctiva Clear ENT: Positive: Pharyngeal erythema, Nasal congestion, TMs normal, Uvula midline Neck: Positive: Supple, Nontender, No Lymphadenopathy Respiratory: Positive: Chest non-tender, Lungs clear, Normal breath sounds, No respiratory distress Cardiovascular: Positive: RRR, No Murmur, Pulses Normal, Brisk Capillary Refill Abdomen Description: Positive: Nontender Flu Course/Dx - Course Course Of Treatment: influenza b positive, rest, ibuprofen as needed, oral hydration, avoid caffeine and alcohol. - Differential Dx/Diagnosis Provider Diagnoses: influenza B Discharge - Sign-Out/Discharge Documenting (check all that apply): Discharge - Discharge Plan Condition: Stable Disposition: HOME Patient Education Materials: Influenza (ED) Forms: *Work Release Referrals: Rudi Becerra MD [Primary Care Provider] - - Billing Disposition and Condition Condition: STABLE Disposition: HOME
== END 2017-10-22 13:09 | disposition home or self-care (01) ==
LOC: UCEAST 11:13
DX: J10.1 Influenza due to other identified influenza virus with other respiratory manifestations (principal); E78.5 Hyperlipidemia, unspecified; Z88.8 Allergy status to other drugs, medicaments and biological substances; Z87.891 Personal history of nicotine dependence
CPT/HCPCS: 87502; 99211; G0463

== ENCOUNTER 2018-01-14 09:05 | Emergency (ER) | payer BC ==
--- NOTE | 2018-01-14 09:44 | UC ---
Throat Pain/Nasal Joe HPI - HPI Summary HPI Summary: 62 yo male presents with sore throat since yesterday. Says this morning is much worse than it was yesterday. Has done rinses and taken OTC medications with intermittent relief. Denies fever, chills, cough, SOB. - History of Current Complaint Hx Obtained From: Patient Onset/Duration: Sudden Onset Severity: Moderate Pain Intensity: 6 Pain Scale Used: 0-10 Numeric <Corby Wright - Last Filed: 01/14/18 10:29> <Tang Segovia - Last Filed: 01/14/18 13:48> - History of Current Complaint Stated Complaint: SORE THROAT Time Seen by Provider: 01/14/18 09:44 - Allergies/Home Medications Allergies/Adverse Reactions: Allergies Allergy/AdvReac Type Severity Reaction Status Date / Time nitroglycerin Allergy See Comment Verified 01/14/18 09:49 Home Medications: Home Medications Echinacea 380 mg PO DAILY 01/14/18 [History Confirmed 01/14/18] Multivitamin [Multivitamins] 1 cap PO DAILY 01/14/18 [History Confirmed 01/14/18 ] PMH/Surg Hx/FS Hx/Imm Hx Endocrine History: Dyslipidemia - Surgical History Surgical History: Yes Surgery Procedure, Year, and Place: Tonsillectomy as child, 2 melanoma surgeries , lithotripsy - Family History Known Family History: Positive: Cardiac Disease - MOM AND DAD, Diabetes - SISTER - Social History Occupation: Employed Full-time Lives: With Family Alcohol Use: Occasionally Alcohol Amount: 1-2 drinks when pt does have occ. drink Substance Use Type: None Smoking Status (MU): Former Smoker Type: Cigarettes Amount Used/How Often: less than 1/2 pk per day Have You Smoked in the Last Year: No When Did the Patient Quit Smoking/Using Tobacco: over 15 years ago - Immunization History Most Recent Influenza Vaccination: 2012 <Corby Wright - Last Filed: 01/14/18 10:29> Review of Systems Constitutional: Negative Skin: Negative Eyes: Negative ENT: Sore Throat Respiratory: Negative Cardiovascular: Negative Neurovascular: Negative Neurological: Negative Psychological: Negative All Other Systems Reviewed And Are Negative: Yes <Corby Wright - Last Filed: 01/14/18 10:29> Physical Exam - Summary Physical Exam Summary: GENERAL: NAD. WDWN. No pain distress. SKIN: No rashes, sores, lesions, or open wounds. HEENT: Head: AT/NC Eyes: Conjunctiva clear without inflammation or discharge. Ears: Hearing grossly normal. TMs intact, no bulging, erythema, or edema. Nose: Nasal mucosa pink and moist. NTTP maxillary and frontal sinus. Throat: Posterior oropharynx mild erythema. No exudates. Uvula midline. No hoarse voice or muffled voice. NECK: Supple. Nontender. No lymphadenopathy. CHEST: CTAB. No r/r/w. No accessory muscle use. Breathing comfortably and in no distress. CV: RRR. Without m/r/g. Pulses intact. Brisk cap refill. NEURO: Alert. CN II-XII grossly intact. PSYCH: Age appropriate behavior. Triage Information Reviewed: Yes Vital Signs: Vital Signs: Temp Pulse Resp BP Pulse Ox 97.5 F 72 16 143/92 97 01/14/18 09:45 01/14/18 09:45 01/14/18 09:45 01/14/18 09:45 01/14/18 09:45 <Corby Wright - Last Filed: 01/14/18 10:29> Vital Signs: Initial Vital Signs Temp 97.5 F 01/14/18 09:45 Pulse 72 01/14/18 09:45 Resp 16 01/14/18 09:45 BP 143/92 01/14/18 09:45 Pulse Ox 97 01/14/18 09:45 <Tang Segovia - Last Filed: 01/14/18 13:48> Throat Pain/Nasal Course/Dx - Course Course Of Treatment: POC strep negative. - Differential Dx/Diagnosis Provider Diagnoses: Pharyngitis <Corby Wright - Last Filed: 01/14/18 10:29> Discharge - Sign-Out/Discharge Documenting (check all that apply): Discharge/Admit/Transfer - Billing Disposition and Condition Condition: STABLE Disposition: Home <Corby Wright Last Filed: 01/14/18 10:29> - Billing Disposition and Condition Condition: STABLE Disposition: Home <Tang Segovia - Last Filed: 01/14/18 13:48> - Discharge Plan Condition: Stable Disposition: HOME Patient Education Materials: Pharyngitis (ED) Referrals: Rudi Becerra MD [Primary Care Provider] - Additional Instructions: If you develop a fever, shortness of breath, chest pain, new or worsening symptoms - please call your PCP or go to the ED. Your blood pressure was high at todays visit. Please see your primary provider within 4 weeks for recheck and re-evaluation. Per institutional requirements, I have reviewed the chart, however, I was not consulted specifically or made aware of this patient by the above midlevel provider. I did not personally evaluate, interact with , or disposition this patient.
[2018-01-14 09:50] VITALS: BP 143/92
== END 2018-01-14 10:14 | disposition home or self-care (01) ==
LOC: UCEAST 09:05
DX: J02.9 Acute pharyngitis, unspecified (principal); Z88.8 Allergy status to other drugs, medicaments and biological substances; Z90.89 Acquired absence of other organs; Z87.891 Personal history of nicotine dependence
CPT/HCPCS: 87651; 99211; G0463

== ENCOUNTER 2018-06-27 17:16 | Emergency (ER) | payer BC ==
--- NOTE | 2018-06-27 18:04 | ED ---
HPI Chest Pain - HPI Summary HPI Summary: A 63 y/o male presents to the ED c/o chest pain. Currently, the patient feels no pain whatsoever, he feels good and all of his symptoms are gone, however, he does feel a little bit of heartburn. As per triage, "Initial had pain in left side of neck which resolved. Chest pain that started apprx 30 minutes ago and resolved. Then felt dizzy". According to the patient, he initially had sudden neck pain, however, the pain subsided after a while. 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 He thought it was ingestion, however, coming out of [place] towards the hospital, he then felt hot and lightheaded. He decided to come to the ED for his concerns. He noted that in the AM, he felt alright as he had no sickness. 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 Around 1630, he was downtown on his run and experienced the mid-sternal chest pain. On the way back to the hospital is when he started noting the lightheadedness and hot. He denies any diaphoresis, nausea , edema and vomiting. No trouble moving head. Patient does take medications such as 40 mg Pravastatin, baby Aspirin, and multivitamin. PMHx of no DM or HBP. SHx of non-smoker. - History of Current Complaint Chief Complaint: EDChestPainROMI Time Seen by Provider: 06/27/18 17:23 Hx Obtained From: Patient Onset/Duration: Started Hours Ago, Resolved Timing: Constant, Lasting Hours Initial Severity: Mild Current Severity: None Pain Intensity: 1 Pain Scale Used: 0-10 Numeric Chest Pain Location: Mid Sternal Chest Pain Radiates: No Aggravating Factor(s): Nothing Alleviating Factor(s): Nothing Associated Signs and Symptoms: Positive: Chest Pain. Negative: Swelling, Fever , Diaphoresis, Nausea, Vomiting - Allergy/Home Medications Allergies/Adverse Reactions: Allergies Allergy/AdvReac Type Severity Reaction Status Date / Time nitroglycerin Allergy See Comment Verified 01/14/18 09:49 PMH/Surg Hx/FS Hx/Imm Hx Endocrine/Hematology History: Denies: Hx Diabetes Cardiovascular History: Reports: Hx Hypercholesterolemia, Other Cardiovascular Problems/Disorders - hx carotid dissection Denies: Hx Congestive Heart Failure, Hx Hypertension, Hx Pacemaker/ICD GI History: Reports: Hx Gastroesophageal Reflux Disease - uses medication Denies: Other GI Disorders History: Reports: Hx Kidney Stones, Other Problems/Disorders - Hx kidney stones 2003, lithotripsy, pt has a kidney stone at this time Denies: Hx Renal Disease Sensory History: Reports: Hx Contacts or Glasses - reading Denies: Hx Hearing Aid Opthamlomology History: Reports: Hx Contacts or Glasses - reading Neurological History: Reports: Other Neuro Impairments/Disorders - carotid dissection right? side Psychiatric History: Denies: Hx Panic Disorder - Cancer History Cancer Type, Location and Year: Melanoma Hx Chemotherapy: No - Surgical History Surgery Procedure, Year, and Place: Tonsillectomy as child, 2 melanoma surgeries , lithotripsy Hx Anesthesia Reactions: No - Immunization History Date of Influenza Vaccine: last fall Infectious Disease History: No Infectious Disease History: Denies: Hx Clostridium Difficile, History Other Infectious Disease, Traveled Outside the [place] in Last 30 Days - Family History Known Family History: Positive: Cardiac Disease - MOM AND DAD, Diabetes - SISTER - Social History Alcohol Use: Occasionally Alcohol Amount: 1-2 drinks when pt does have occ. drink Hx Substance Use: No Substance Use Type: Reports: None Hx Tobacco Use: Yes Smoking Status (MU): Former Smoker Type: Cigarettes Amount Used/How Often: less than 1/2 pk per day Have You Smoked in the Last Year: No Review of Systems Positive: Other - POSITIVE: "HOT". Negative: Fever, Skin Diaphoresis Positive: Chest Pain Negative: Vomiting, Nausea Positive: Other - POSITIVE: NECK PAIN. Negative: Edema Neurological: Other - POSITIVE: LIGHTHEADEDNESS All Other Systems Reviewed And Are Negative: Yes Physical Exam - Summary Physical Exam Summary: Appearance: Well-appearing, Well-nourished, lying in bed comfortably Skin: Warm, dry, no obvious rash Eyes: sclera anicteric, no conjunctival pallor ENT: mucous membranes moist, pharynx appears normal Neck: Supple, nontender Respiratory: Clear to auscultation, no signs of respiratory distress Cardiovascular: Normal S1, S2. No murmurs. Normal distal pulses in tibial and radial bilaterally. Abdomen: Soft, nontender, normal active bowel sounds present Musculoskeletal: Normal, Strength/ROM Intact Neurological: A&Ox3, awake and alert, mentation is normal, speech is fluent and appropriate Psychiatric: affect is normal, does not appear anxious or depressed Triage Information Reviewed: Yes Vital Signs On Initial Exam: Initial Vitals Temp Pulse Resp BP Pulse Ox 97.5 F 82 16 139/85 96 06/27/18 17:18 06/27/18 17:18 06/27/18 17:18 06/27/18 17:18 06/27/18 17:18 Vital Signs Reviewed: Yes Diagnostics - Vital Signs Vital Signs Temp Pulse Resp BP Pulse Ox 06/27/18 17:18 97.5 F 82 16 139/85 96 - Laboratory Result Diagrams: 06/27/18 18:13 06/27/18 18:13 Lab Statement: Any lab studies that have been ordered have been reviewed, and results considered in the medical decision making process. - Radiology CXR Radiology Interpretation Completed By: ED Physician - No acute disease. Pending official report. - EKG 1724 Cardiac Rate: NL - 66 BPM EKG Rhythm: Sinus Rhythm Summary of EKG Findings: NSR at 66 BPM, P waves, QRS complex, and T waves are within normal limits, T waves and intervals are normal, no ischemic changes. This is a normal EKG. Chest Pain Course/Dx - Course Course Of Treatment: A 63 y/o male presents to the ED c/o chest pain. Currently , the patient feels no pain whatsoever, he feels good and all of his symptoms are gone, however, he does feel a little bit of heartburn. According to the patient, he initially had sudden neck pain, however, the pain subsided after a while. Then when he was downtown on his last [employer] run, he felt pain in the center of his chest. He thought it was ingestion, however, coming out of [place] towards the hospital, he then felt hot and lightheaded. He decided to come to the ED for his concerns. He noted that in the AM, he felt alright as he had no sickness. 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 Around 1630, he was downtown on his run and experienced the mid-sternal chest pain. On the way back to the hospital is when he started noting the lightheadedness and hot. He denies any diaphoresis, nausea, edema and vomiting. No trouble moving head. Physical examination was unremarkable. A CXR revealed no acute disease. An EKG revealed NSR at 66 BPM, P waves, QRS complex, and T waves are within normal limits, T waves and intervals are normal, no ischemic changes. This is a normal EKG. Hematology was done. Labs were insignificant. In the ED course, the patient received Maalox. Patient will be discharged with a diagnosis of non- cardiac chest pain. Patient is to follow up with primary care provider in 2-3 days. Patient is to return to ED for any new or worsening symptoms. Patient is agreeable with this plan. - Diagnoses Provider Diagnoses: Non-cardiac chest pain Discharge - Sign-Out/Discharge Documenting (check all that apply): Patient Departure - DISCHARGE - Discharge Plan Condition: Good Disposition: HOME Patient Education Materials: Noncardiac Chest Pain (ED) Referrals: Rudi Becerra MD [Primary Care Provider] - 3 Days Additional Instructions: FOLLOW UP WITH PRIMARY CARE PROVIDER IN 2-3 DAYS. RETURN TO THE ED FOR ANY NEW OR WORSENING SYMPTOMS. - Attestation Statements Document Initiated by Roxy: Yes Documenting Scribe: Kobe Ervin Provider For Whom Selvinibe is Documenting (Include Credential): Zurdo Bee MD Scribe Attestation: Kobe Fisher scribed for Zurdo Bee MD on 06/27/18 at 1748. Status of Scribe Document: Ready
[2018-06-27 18:49] LABS: Hematocrit 44 % (42-52); Mean Corpuscular HGB Conc 34 g/dl (31-36); Mean Corpuscular Hemoglobin 32 pg (27-31); Mean Corpuscular Volume 94 fL (80-94); Mean Platelet Volume 7.5 fL (7.4-10.4); Platelet Count 279 10^3/ul (150-450); Red Blood Count 4.73 10^6/ul (4.00-5.40); Red Cell Distribution Width 13 % (10.5-15); White Blood Count 10.4 10^3/ul (3.5-10.8)
[2018-06-27 18:52] LABS: ABS Neutrophils 3.8 10^3/ul (1.5-7.7)
[2018-06-27 18:53] LABS: ABS Basophils 0.1 10^3/ul (0-0.2); ABS Eosinophils 0.1 10^3/ul (0-0.6); ABS Lymphocytes 5.7 10^3/ul (1.0-4.8); ABS Monocytes 0.8 10^3/ul (0-0.8); ABS Nucleated RBC 0.07 10^3/ul; Eosinophil % 0.6 %; Lymphocyte % 54.7 %; Nucleated Red Blood Cells % 0.6
[2018-06-27] MEDS ORDERED: Al Hydrox/Mg Hydrox/Simet LIQ* 30 ML UDC PO ONE (19:09)
[2018-06-27 21:28] VITALS: BP 126/82
== END 2018-06-27 21:27 | disposition home or self-care (01) ==
LOC: ED 17:16
DX: R07.9 Chest pain, unspecified (principal); M54.2 Cervicalgia; Z87.891 Personal history of nicotine dependence
CPT/HCPCS: 36415; 71045; 80053; 84484; 85025; 93005; 99282; A9270-GY

== ENCOUNTER 2018-08-13 08:31 | Emergency (ER) | payer BC ==
[2018-08-13] MEDS ORDERED: NS 0.9% 1000 ML* 1,000 ML IV ONE (08:35)
--- NOTE | 2018-08-13 08:45 | ED ---
Syncope/Near Syncope - HPI Summary HPI Summary: A 63 y/o M brought in by ambulance presents to ED with c/o near-syncope onset [employer]. He was snow-blowing his driveway this AM for approx 30 minutes. His hands got very cold, so he stopped and went back inside. He suddenly felt nauseated and very lightheaded, as if he might pass out. Associated sx: mild SOB. Denies CP. 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 Patient last ate last night. He s had a previous, similar episode of severe lightheadedness a few years ago, which spontaneously resolved. He states feeling improved upon arrival. He is a non-smoker and takes a daily baby aspirin. He denies taking HTN medication. Patient recalls having a near-syncopal episode after a stress test in the , he said the doctors said his BP dropped. - History Of Current Complaint Time Seen by Provider: 08/13/18 08:35 Hx Obtained From: Patient Onset/Duration: Sudden Onset, Lasting Minutes, Still Present Timing: Constant Activity At Onset: Exertion - snow-blowing Associated Head Trauma: No Alleviating Factor(s): Rest Associated Signs And Symptoms: Dizzy, Lightheadedness, Shortness Of Breath - mild, Other - pos: nausea. neg: CP. - Allergies/Home Medications Allergies/Adverse Reactions: Allergies Allergy/AdvReac Type Severity Reaction Status Date / Time nitroglycerin Allergy See Comment Verified 08/13/18 08:39 PMH/Surg Hx/FS Hx/Imm Hx Previously Healthy: No Endocrine/Hematology History: Denies: Hx Diabetes Cardiovascular History: Reports: Hx Hypercholesterolemia, Other Cardiovascular Problems/Disorders - hx carotid dissection Denies: Hx Congestive Heart Failure, Hx Hypertension, Hx Pacemaker/ICD GI History: Reports: Hx Gastroesophageal Reflux Disease - uses medication Denies: Other GI Disorders History: Reports: Hx Kidney Stones, Other Problems/Disorders - Hx kidney stones 2003, lithotripsy, pt has a kidney stone at this time Denies: Hx Renal Disease Sensory History: Reports: Hx Contacts or Glasses - reading Denies: Hx Hearing Aid Opthamlomology History: Reports: Hx Contacts or Glasses - reading Neurological History: Reports: Other Neuro Impairments/Disorders - carotid dissection right? side Psychiatric History: Denies: Hx Panic Disorder - Cancer History Cancer Type, Location and Year: Melanoma Hx Chemotherapy: No - Surgical History Surgery Procedure, Year, and Place: Tonsillectomy as child, 2 melanoma surgeries , lithotripsy Hx Anesthesia Reactions: No - Immunization History Date of Influenza Vaccine: last fall Infectious Disease History: Denies: Hx Clostridium Difficile, History Other Infectious Disease - Family History Known Family History: Positive: Cardiac Disease - MOM AND DAD, Diabetes - SISTER Family History: Dad, TIA, alive in late 80s. - Social History Occupation: Retired Lives: With Family Alcohol Use: Occasionally Alcohol Amount: 1-2 drinks when pt does have occ. drink Hx Substance Use: No Substance Use Type: Reports: None Hx Tobacco Use: Yes Smoking Status (MU): Former Smoker Type: Cigarettes Amount Used/How Often: less than 1/2 pk per day Have You Smoked in the Last Year: No Review of Systems Negative: Chest Pain Positive: Shortness Of Breath - mild Positive: Nausea Neurological: Other - pos: lightheadedness/dizziness Positive: Syncope - near-syncope All Other Systems Reviewed And Are Negative: Yes Physical Exam - Summary Physical Exam Summary: Appearance: Well appearing, no pain distress Skin: warm, dry, reflects adequate perfusion Head/face: normal Eyes: EOMI, FERCHO ENT: mucous membranes moist Neck: supple, non-tender Respiratory: CTA, breath sounds present Cardiovascular: bradycardia, regular rhythm, pulses symmetrical Abdomen: non-tender, soft Bowel Sounds: present Musculoskeletal: normal, strength/ROM intact Neuro: normal, sensory motor intact, A&Ox3 Triage Information Reviewed: Yes Vital Signs Reviewed: Yes Diagnostics - Laboratory Result Diagrams: 08/13/18 08:00 08/13/18 08:00 Lab Statement: Any lab studies that have been ordered have been reviewed, and results considered in the medical decision making process. - EKG 0839 Cardiac Rate: Bradycardia - 49bpm EKG Rhythm: Sinus Bradycardia ST Segment: Normal Summary of EKG Findings: Left axis. Normal interval. Re-Evaluation - Re-Evaluation 1 Re-Evaluation Time: 09:28 Change: Improved Comment: Patient had chills previously, but is feeling better now. Course/Dx Course Of Treatment: Nurse's notes reviewed. Patient with nausea and near syncope with bradycardia on arrival here. His sugar was normal as laboratories were unremarkable. He recovered in terms of heart rate and his symptoms abated. He was able to walk around the ER without symptoms. There is no carbon monoxide exposure or chest pain associated. He will follow closely with his primary care physician. - Diagnoses Differential Diagnosis/HQI/PQRI: Positive: Hypoglycemia, Hypovolemia, Metabolic Reaction, Myocardial Infarction, Medication Reaction, Transient Ischemic Attack , Vasovagal Episode Provider Diagnoses: Bradycardia, Near syncope Discharge - Sign-Out/Discharge Documenting (check all that apply): Patient Departure - D/C - Discharge Plan Condition: Improved Disposition: HOME Patient Education Materials: Near Syncope (ED) Forms: *Work Release Referrals: Rudi Becerra MD [Primary Care Provider] - Additional Instructions: Off work today. Call your doctor today to schedule prompt follow-up. Drink plenty of fluids. Return with chest pain, difficulty breathing, dizziness, fainting, worse, new symptoms or other concerns. - Billing Disposition and Condition Condition: IMPROVED Disposition: Home - Attestation Statements Document Initiated by Roxy: Yes Documenting Scribe: Chasity Nicolas Provider For Whom Roxy is Documenting (Include Credential): Dr. Brooks Hodges MD Scribe Attestation: Chasity Fisher scribed for Dr. Brooks Hodges MD on 08/13/18 at 1106. Scribe Documentation Reviewed: Yes Provider Attestation: The documentation as recorded by the Chasity alaniz accurately reflects the service I personally performed and the decisions made by , Dr. Brooks Hodges MD Status of Scribe Document: Viewed
[2018-08-13 08:59] LABS: Hematocrit 46 % (42-52); Mean Corpuscular HGB Conc 33 g/dl (31-36); Mean Corpuscular Hemoglobin 32 pg (27-31); Mean Corpuscular Volume 95 fL (80-94); Mean Platelet Volume 7.1 fL (7.4-10.4); Platelet Count 244 10^3/ul (150-450); Red Blood Count 4.78 10^6/ul (4.00-5.40); Red Cell Distribution Width 14 % (10.5-15); White Blood Count 7.9 10^3/ul (3.5-10.8)
[2018-08-13 09:17] LABS: BUN/Creatinine Ratio 12.3 (8-20); Calcium 9.3 mg/dL (8.6-10.3); EGFR Non-African American 96.6 (>60)
[2018-08-13 09:31] LABS: ABS Basophils 0 10^3/ul (0-0.2); ABS Eosinophils 0 10^3/ul (0-0.6); ABS Lymphocytes 4.5 10^3/ul (1.0-4.8); ABS Monocytes 0.6 10^3/ul (0-0.8); ABS Neutrophils 2.7 10^3/ul (1.5-7.7); ABS Nucleated RBC 0 10^3/ul; Eosinophil % 0.4 %; Lymphocyte % 56.8 %; Nucleated Red Blood Cells % 0.4
[2018-08-13 10:09] LABS: Urine Red Blood Cell Trace(0-2/hpf) (Absent); Urine White Blood Cell Trace(0-5/hpf) (Absent)
[2018-08-13 10:10] LABS: Urine Appearance Clear; Urine Color Straw; Urine Ketones Negative (Negative); Urine Protein 1+(30 mg/dL) (Negative); Urine Specific Gravity 1.005 (1.010-1.030); Urine Urobilinogen Negative (Negative)
[2018-08-13 10:11] LABS: Urine Bilirubin Negative (Negative); Urine Blood Negative (Negative); Urine Glucose Negative (Negative); Urine Nitrite Negative (Negative)
[2018-08-13 10:18] LABS: Urine Bacteria Absent (Absent)
[2018-08-13 10:27] VITALS: BP 111/69
== END 2018-08-13 10:26 | disposition home or self-care (01) ==
LOC: ED 08:31
DX: R00.1 Bradycardia, unspecified (principal); R55 Syncope and collapse; R06.02 Shortness of breath; R11.0 Nausea; Z79.82 Long term (current) use of aspirin; K21.9 Gastro-esophageal reflux disease without esophagitis; Z88.8 Allergy status to other drugs, medicaments and biological substances; Z82.49 Family history of ischemic heart disease and other diseases of the circulatory system; Z83.3 Family history of diabetes mellitus; Z87.891 Personal history of nicotine dependence
CPT/HCPCS: 36415; 80048; 81003; 81015; 84484; 85025; 87086; 93005; 96360; 99283

== ENCOUNTER 2023-03-06 18:10 | Observation (INO) ==
[2023-03-06] MEDS ORDERED: Bupivacaine 0.5% 50 ML MDV VIAL ONE (18:13)
[2023-03-06] MEDS ORDERED: fentaNYL 100 mcg/2 ml 50 MCG/ML VIAL ONE ×2 (18:15→20:55)
[2023-03-06] MEDS ORDERED: Metoclopramide 5 MG/ML VIAL (10 mg) ONE (18:24)
[2023-03-06] MEDS ORDERED: ceFAZolin 2 GM in NS PREMIX 2 GM/100 ML BAG IVPB ONE (18:24)
[2023-03-06] MEDS ORDERED: Famotidine IV 10 MG/ML 2 ml VIAL (20 mg) ONE (18:24)
[2023-03-06] MEDS ORDERED: Midazolam 2 mg/2 ml VIAL 1 mg/ml 2 ml VIAL (2 mg) ONE (18:43)
[2023-03-06] MEDS ORDERED: Dexamethasone IV 4 MG/ML VIAL 1 ml VIAL ONE (19:36)
[2023-03-06] MEDS ORDERED: Ondansetron 4 mg VIAL 2 MG/ML 2 ml VIAL ONE (19:36)
[2023-03-06] MEDS ORDERED: Naloxone 0.4 mg VIAL 0.4 mg/ml 1 ml VIAL IV PRN (19:50)
[2023-03-06] MEDS ORDERED: HYDROcodone/ACETAMIN 5/325 mg TAB PO PRN (19:50)
[2023-03-06] MEDS ORDERED: oxyCODONE/Acetamin 5/325 mg TAB PO PRN (19:50)
[2023-03-06] MEDS ORDERED: fentaNYL 100 mcg/2 ml 50 MCG/ML VIAL IV PRN (19:50)
[2023-03-06 20:28] LABS: INR 1.26 (0.88-1.18)
[2023-03-06 21:09] LABS: Rapid COVID-19 Molecular Undetected (Undetected)
[2023-03-06] MEDS: NS 0.9% 1,000 ML IV SCH (23:30)
[2023-03-06] MEDS: oxyCODONE/Acetamin 5/325 mg TAB PO PRN (23:42)
[2023-03-07] MEDS: NS 0.9% 1,000 ML IV SCH (06:09)
[2023-03-07] MEDS: oxyCODONE/Acetamin 5/325 mg TAB PO PRN ×2 (10:30→17:48)
[2023-03-07 17:31] VITALS: BP 140/78
== END 2023-03-07 18:00 | disposition home or self-care (01) ==
LOC: EDACCT# → OR 18:10 → SSU 22:32 → INTOOBSV 22:32
PROVIDERS: ADMIT Physician Assistant Medical; ATTEND Urology